=== PATIENT | male | born 1960 | race African-American/Black ===

== ENCOUNTER 2019-08-17 03:33 | Emergency (ER) | payer MEDICAID ==
[~2019-08-17] VITALS: Ht 182.9 cm; Wt 78.0 kg
[2019-08-17 04:08] VITALS: BP 131/98
== END 2019-08-18 06:34 | disposition left against medical advice (07) ==
LOC: ER 03:33
DX: Z53.21 Procedure and treatment not carried out due to patient leaving prior to being seen by health care provider (principal)

== ENCOUNTER 2021-08-25 10:52 | Emergency (ER) | payer MEDICAID, OTHER ==
[~2021-08-25] VITALS: Ht 182.9 cm; Wt 78.0 kg
[2021-08-25 11:57] LABS: BASOPHILS % 0.7 % (0.0-2.0); EOSINOPHILS % 2.1 % (0.0-5.0); HEMATOCRIT. 36.4 % (42.0-52.0); HEMOGLOBIN. 12.5 g/dL (14.0-18.0); LYMPHOCYTES % 24.1 % (20.0-50.0); MEAN CORPUSCULAR HEMOGLOBIN 32.2 pg (28.0-32.0); MEAN CORPUSCULAR VOLUME 93.9 fL (80.0-94.0); MEAN PLATELET VOLUME 8.7 fl (7.4-10.4); NEUTROPHILS % 65.1 % (40.0-76.0); PLATELET 180 x1000/uL (130-400); RED BLOOD CELL COUNT 3.88 mill/uL (4.7-6.1); RED CELL DISTRIBUTION WIDTH 13.1 % (11.6-14.6)
[2021-08-25 12:00] LABS: CHLORIDE 109 mEq/L (98-107)
[2021-08-25] MEDS ORDERED: FUROSEMIDE 40MG/4ML VIAL IV ONE (13:15)
[2021-08-25] MEDS ORDERED: ASPIRIN 81MG TABLET PO ONE (13:15)
[2021-08-25] MEDS ORDERED: METHYLPREDNISOLONE SOD SUCC 125 MG/2 ML VIAL IV ONE (13:15)
[2021-08-25] MEDS ORDERED: CEFTRIAXONE 1 G PREMIX 50 ML IV ONE (13:15)
[2021-08-25 13:57] VITALS: BP 149/101
== END 2021-08-25 14:34 | disposition short-term general hospital (02) ==
LOC: ER 11:03
DX: I11.0 Hypertensive heart disease with heart failure (principal); I50.9 Heart failure, unspecified; E78.00 Pure hypercholesterolemia, unspecified; I10 Essential (primary) hypertension
CPT/HCPCS: 36415; 71045; 80053; 83880; 84484; 85025; 99291

== ENCOUNTER 2021-09-01 05:18 | Inpatient (IN) | payer OTHER ==
[2021-09-01] VITALS (62 sets, daily range): BP systolic 77–151; BP diastolic 50–107
[~2021-09-01] VITALS: Ht 185.4 cm; Wt 69.5 kg
[2021-09-01 05:48] LABS: BASOPHILS % 0.9 % (0.0-2.0); EOSINOPHILS % 1.9 % (0.0-5.0); HEMATOCRIT. 40.6 % (42.0-52.0); HEMOGLOBIN. 13.5 g/dL (14.0-18.0); LYMPHOCYTES % 58.7 % (20.0-50.0); MEAN CORPUSCULAR HEMOGLOBIN 32.3 pg (28.0-32.0); MEAN CORPUSCULAR VOLUME 96.7 fL (80.0-94.0); MEAN PLATELET VOLUME 8.7 fl (7.4-10.4); MONOCYTES % 10.7 % (2.0-8.0); NEUTROPHILS % 27.8 % (40.0-76.0); PLATELET 240 x1000/uL (130-400); RED CELL DISTRIBUTION WIDTH 13.7 % (11.6-14.6)
[2021-09-01 05:56] LABS: CHLORIDE 107 mEq/L (98-107)
[2021-09-01] MEDS ORDERED: FENTANYL 2500MCG/250ML PMX 250 ML IV PRN ×2 (06:00→06:15)
[2021-09-01] MEDS ORDERED: ETOMIDATE 2MG/ML 10ML VIAL IV ONE ×2 (06:00→08:42)
[2021-09-01] MEDS ORDERED: PROPOFOL 10MG/ML 100ML 100 ML IV ONE (06:00)
[2021-09-01] MEDS ORDERED: METHYLPREDNISOLONE SOD SUCC 125 MG/2 ML VIAL IV STA (06:12)
[2021-09-01] MEDS ORDERED: ALBUTEROL (0.083%) 2.5MG/3ML NEB HHN STA (06:12)
[2021-09-01] MEDS ORDERED: IPRATROPIUM BROMIDE (0.02%) 0.5MG/2.5ML NEB HHN STA (06:12)
[2021-09-01] MEDS ORDERED: PIPERACILLIN/TAZOBACTAM 3.375GM/50ML PREMIX IV ONE (06:15)
[2021-09-01] MEDS ORDERED: VANCOMYCIN 1G PREMIX 200 ML IV SCH (06:15)
[2021-09-01] MEDS ORDERED: PIPERACILLIN/TAZ 3.375G PREMIX 50 ML IV NR (06:30)
[2021-09-01] MEDS ORDERED: FUROSEMIDE 40MG/4ML VIAL IVP ONE (07:15)
[2021-09-01] MEDS ORDERED: NOREPINEPHRINE 8 MG in DEXT 5% WATER 242 ML IV PRN (08:30)
[2021-09-01] MEDS ORDERED: SODIUM CHLORIDE 0.9% 10ML VIAL ONE (08:42)
[2021-09-01] MEDS ORDERED: VECURONIUM BROMIDE 10 MG/VIAL IV ONE (08:42)
[2021-09-01] MEDS ORDERED: LIDOCAINE HCL/PF 1% 2ML VIAL ONE (09:34)
[2021-09-01] MEDS ORDERED: MAGNESIUM/ALUMINUM HYDROXIDE/SIMETHICONE 30ML UDC PO PRN (09:45)
[2021-09-01] MEDS ORDERED: IPRATROPIUM/ALBUTEROL 0.5-3(2.5)MG/3ML NEB HHN PRN (09:45)
[2021-09-01] MEDS ORDERED: CLONIDINE 0.1MG TABLET PO PRN (09:45)
[2021-09-01] MEDS ORDERED: ONDANSETRON HCL 4MG/2ML INJ IV PRN (09:45)
[2021-09-01] MEDS ORDERED: DIPHENHYDRAMINE 50MG/ML VIAL IV PRN (09:45)
[2021-09-01] MEDS ORDERED: PROPOFOL 10MG/ML 100ML 100 ML IV PRN (09:45)
[2021-09-01] MEDS ORDERED: MORPHINE SULFATE 2 MG/ML CPJ (NOT FOR IM USE) IV PRN (09:45)
[2021-09-01] MEDS ORDERED: ACETAMINOPHEN 325MG TABLET PO PRN (09:45)
[2021-09-01] MEDS ORDERED: HYDROCODONE/ACETAMINOPHEN 5/325MG TABLET PO PRN (09:45)
[2021-09-01] MEDS ORDERED: DOCUSATE SODIUM 100MG CAPSULE PO PRN (09:45)
[2021-09-01] MEDS ORDERED: GUAIFENESIN 200MG/10ML SUGAR FREE UDC PO PRN (09:45)
[2021-09-01] MEDS ORDERED: HYDRALAZINE 20MG/ML VIAL IV PRN (09:45)
[2021-09-01] MEDS ORDERED: LORAZEPAM 2MG/ML CPJ IV PRN (09:45)
[2021-09-01 09:53] LABS: BG BASE EXCESS -0.6 mmol/L (-2.0-2.0); BG CARBOXYHEMOGLOBIN 0.1 % (0.5-1.5); BG DEOXYHEMOGLOBIN 3.4 % (0.0-5.0); BG HCO3 ACT 27.1 mmol/L (22.0-26.0); BG METHEMOGLOBIN 0.7 % (0.0-1.5); BG OXYGEN SATURATION 96.6 % (92.0-98.5); BG OXYHEMOGLOBIN 95.8 % (94.0-97.0); BG PCO2 57.8 mmHg (35.0-45.0); BG PH 7.289 (7.350-7.450); BG PO2 101.3 mmHg (75.0-100.0); BG SAMPLE SITE RIGHT BRACHIAL; BG TOTAL HEMOGLOBIN 14.2 g/dL (12.0-18.0); BG VENT MODE VENT - AC
[2021-09-01] MEDS ORDERED: POTASSIUM CHLORIDE INJ 40 MEQ in DEXT 5% WATER 500 ML IV ONE (10:15)
[2021-09-01] MEDS ORDERED: NALOXONE HCL 0.4MG/ML VIAL IV PRN (10:30)
[2021-09-01] MEDS ORDERED: ENOXAPARIN 40MG/0.4ML SYR SUBCUT SCH (10:30)
[2021-09-01] MEDS ORDERED: LIDOCAINE HCL/PF 1% 10 MG/ML 5ML VIAL ONE (10:39)
[2021-09-01] MEDS: DEXT 5%/0.45% NACL 1000ML 1,000 ML IV SCH (13:06)
[2021-09-01] MEDS: CEFTRIAXONE 1,000 MG in DEXTROSE 5% WATER 50 ML IV SCH (13:06)
[2021-09-01] MEDS: KCL 20MEQ/100ML X 2 FOR TOTAL KCL 40MEQ/200ML IV SCH ×2 (13:06→15:29)
[2021-09-01 13:10] LABS: BG BASE EXCESS 0.6 mmol/L (-2.0-2.0); BG CARBOXYHEMOGLOBIN 0.3 % (0.5-1.5); BG DEOXYHEMOGLOBIN 2.5 % (0.0-5.0); BG HCO3 ACT 25.3 mmol/L (22.0-26.0); BG METHEMOGLOBIN 0.3 % (0.0-1.5); BG OXYGEN SATURATION 97.5 % (92.0-98.5); BG OXYHEMOGLOBIN 96.9 % (94.0-97.0); BG PCO2 41.1 mmHg (35.0-45.0); BG PH 7.407 (7.350-7.450); BG PO2 96.8 mmHg (75.0-100.0); BG SAMPLE SITE RIGHT BRACHIAL; BG TOTAL HEMOGLOBIN 13.9 g/dL (12.0-18.0); BG VENT MODE VENT - AC
[2021-09-01] MEDS ORDERED: PHENYLEPHRINE 50 MG in DEXT 5% WATER 245 ML IV PRN (14:00)
[2021-09-01] MEDS ORDERED: SPIRONOLACTONE 50MG TABLET PO SCH (14:00)
[2021-09-01] MEDS: SODIUM CHLORIDE 0.9% INJ 3ML FLUSH IVF SCH ×2 (14:12→21:33)
[2021-09-01] MEDS: METHYLPREDNISOLONE SOD SUCC 40 MG/ML VIAL IV SCH ×2 (14:22→21:33)
[2021-09-01] MEDS: FUROSEMIDE 40MG/4ML VIAL IVP SCH (14:22)
[2021-09-01] MEDS ORDERED: IBUP-2028 MT (17:49)
[2021-09-01] MEDS ORDERED: ALBU90AE INH (17:49)
[2021-09-01] MEDS ORDERED: TAMS-11 MT (17:49)
[2021-09-01] MEDS ORDERED: ASPI-1497 MT (17:49)
[2021-09-01] MEDS ORDERED: AMLO10TA80 PO (17:49)
[2021-09-01] MEDS ORDERED: ENOXAPARIN 40MG/0.4ML SYR SUBCUT NR (18:00)
[2021-09-01] MEDS: ENOXAPARIN 80MG/0.8ML SYR SUBCUT SCH (19:02)
[2021-09-01] MEDS: FENTANYL 2500MCG/250ML PMX 250 ML IV PRN (20:43)
[2021-09-01 22:07] LABS: CLARITY URINE CLOUDY (CLEAR); COLOR URINE DARK YELLOW (YELLOW); KETONES URINE TRACE (NEGATIVE); LEUKOCYTE ESTERASE URINE 1+ (NEGATIVE); NITRITE URINE NEGATIVE (NEGATIVE); OCCULT BLOOD URINE 2+ (NEGATIVE); PROTEIN URINE TRACE (NEGATIVE)
[2021-09-01 22:20] LABS: INR 1.1; PROTHROMBIN TIME 11.7 sec (9.6-11.0)
[2021-09-01 22:22] LABS: *AMPHETAMINES SCREEN URINE NEGATIVE (NEGATIVE); *BARBITURATES SCREEN URINE NEGATIVE (NEGATIVE); *BENZODIAZEPINES SCREEN URINE NEGATIVE (NEGATIVE); *COCAINE SCREEN URINE PRESUMTIVE POSITIVE (NEGATIVE); METHADONE URINE SCREEN NEGATIVE (NEGATIVE); OPIATES URINE SCREEN NEGATIVE (NEGATIVE)
[2021-09-01 22:24] LABS: CANNABINOID URINE SCREEN PRESUMTIVE POSITIVE (NEGATIVE); PHENCYCLIDINE URINE SCREEN NEGATIVE (NEGATIVE)
[2021-09-01] MEDS ORDERED: PHENYLEPHRINE 100 MG in DEXT 5% WATER 240 ML IV PRN (23:30)
[2021-09-02] VITALS (81 sets, daily range): BP systolic 69–159; BP diastolic 51–108
[2021-09-02 05:22] LABS: HEMATOCRIT. 38.4 % (42.0-52.0); HEMOGLOBIN. 12.8 g/dL (14.0-18.0); MEAN CORPUSCULAR HEMOGLOBIN 32.2 pg (28.0-32.0); MEAN CORPUSCULAR VOLUME 96.7 fL (80.0-94.0); MEAN PLATELET VOLUME 9.5 fl (7.4-10.4); PLATELET 238 x1000/uL (130-400); RED BLOOD CELL COUNT 3.97 mill/uL (4.7-6.1); RED CELL DISTRIBUTION WIDTH 14.3 % (11.6-14.6)
[2021-09-02 05:33] LABS: CHLORIDE 106 mEq/L (98-107)
[2021-09-02] MEDS: METHYLPREDNISOLONE SOD SUCC 40 MG/ML VIAL IV SCH ×3 (05:52→22:32)
[2021-09-02] MEDS: SODIUM CHLORIDE 0.9% INJ 3ML FLUSH IVF SCH ×3 (05:52→22:32)
[2021-09-02 05:53] LABS: CLARITY URINE CLEAR (CLEAR); COLOR URINE YELLOW (YELLOW); KETONES URINE TRACE (NEGATIVE); LEUKOCYTE ESTERASE URINE TRACE (NEGATIVE); NITRITE URINE NEGATIVE (NEGATIVE); OCCULT BLOOD URINE 2+ (NEGATIVE); PROTEIN URINE TRACE (NEGATIVE); UROBILINOGEN URINE 0.2 E.U./dL (0.2-1.0)
[2021-09-02] MEDS: ENOXAPARIN 80MG/0.8ML SYR SUBCUT SCH ×2 (06:19→17:45)
[2021-09-02 06:58] LABS: *AMPHETAMINES SCREEN URINE NEGATIVE (NEGATIVE)
[2021-09-02 06:59] LABS: *BENZODIAZEPINES SCREEN URINE NEGATIVE (NEGATIVE); *COCAINE SCREEN URINE PRESUMTIVE POSITIVE (NEGATIVE); CANNABINOID URINE SCREEN PRESUMTIVE POSITIVE (NEGATIVE); METHADONE URINE SCREEN NEGATIVE (NEGATIVE); OPIATES URINE SCREEN NEGATIVE (NEGATIVE); PHENCYCLIDINE URINE SCREEN NEGATIVE (NEGATIVE)
[2021-09-02 07:10] LABS: NUCLEATED RED BLOOD CELLS 1 /100 WBC; PLATELET ESTIMATE NORMAL
[2021-09-02] MEDS ORDERED: NITROGLYCERIN OINT 1GM/INCH UDPKT TD PRN (08:45)
[2021-09-02] MEDS ORDERED: CEFTRIAXONE SODIUM 1 G/VIAL IV SCH (09:00)
[2021-09-02] MEDS: FENTANYL 2500MCG/250ML PMX 250 ML IV PRN ×2 (09:04→21:59)
[2021-09-02] MEDS: FUROSEMIDE 40MG/4ML VIAL IVP SCH ×2 (09:24→17:45)
[2021-09-02] MEDS: ASPIRIN 81MG TABLET PO SCH (09:24)
[2021-09-02] MEDS: DEXT 5%/0.45% NACL 1000ML 1,000 ML IV SCH (09:24)
[2021-09-02 11:14] LABS: BG BASE EXCESS -2.6 mmol/L (-2.0-2.0); BG CARBOXYHEMOGLOBIN 0.3 % (0.5-1.5); BG DEOXYHEMOGLOBIN 0.5 % (0.0-5.0); BG HCO3 ACT 23.7 mmol/L (22.0-26.0); BG METHEMOGLOBIN 0.1 % (0.0-1.5); BG OXYGEN SATURATION 99.5 % (92.0-98.5); BG OXYHEMOGLOBIN 99.1 % (94.0-97.0); BG PCO2 46.8 mmHg (35.0-45.0); BG PH 7.323 (7.350-7.450); BG PO2 422.8 mmHg (75.0-100.0); BG SAMPLE SITE RIGHT BRACHIAL; BG TOTAL HEMOGLOBIN 14.4 g/dL (12.0-18.0); BG VENT MODE VENT - AC
[2021-09-02 12:13] LABS: BG BASE EXCESS 0.7 mmol/L (-2.0-2.0); BG CARBOXYHEMOGLOBIN 0.3 % (0.5-1.5); BG DEOXYHEMOGLOBIN 5.3 % (0.0-5.0); BG FRACTION INSPIRED OXYGEN 50; BG HCO3 ACT 27.9 mmol/L (22.0-26.0); BG METHEMOGLOBIN 0.1 % (0.0-1.5); BG OXYGEN SATURATION 94.7 % (92.0-98.5); BG OXYHEMOGLOBIN 94.3 % (94.0-97.0); BG PH 7.316 (7.350-7.450); BG PO2 81.3 mmHg (75.0-100.0); BG SAMPLE SITE RIGHT BRACHIAL; BG TOTAL HEMOGLOBIN 13.4 g/dL (12.0-18.0); BG VENT MODE VENT - AC
[2021-09-02] MEDS: CEFTRIAXONE 1,000 MG in DEXTROSE 5% WATER 50 ML IV SCH (13:36)
[2021-09-02] MEDS: CLOPIDOGREL 75MG TABLET NG SCH (13:37)
[2021-09-02] MEDS: LOSARTAN POTASSIUM 50 MG TABLET NG SCH (13:37)
[2021-09-02] MEDS: SPIRONOLACTONE 25MG TABLET NG SCH (13:38)
[2021-09-02] MEDS ORDERED: SIMV-43 PO (14:32)
[2021-09-02] MEDS ORDERED: HYDR25TA PO (14:32)
[2021-09-02] MEDS ORDERED: PROPOFOL 10MG/ML 100ML 100 ML IV PRN (16:00)
[2021-09-02] MEDS: ATORVASTATIN CALCIUM 40MG TABLET NG SCH (21:27)
[2021-09-03] VITALS (42 sets, daily range): BP systolic 92–135; BP diastolic 56–104
[2021-09-03 06:01] LABS: HEMATOCRIT. 35.1 % (42.0-52.0); MEAN CORPUSCULAR HEMOGLOBIN 32.5 pg (28.0-32.0); MEAN CORPUSCULAR VOLUME 95.5 fL (80.0-94.0); MEAN PLATELET VOLUME 9.2 fl (7.4-10.4); PLATELET 219 x1000/uL (130-400); RED BLOOD CELL COUNT 3.67 mill/uL (4.7-6.1)
[2021-09-03] MEDS: FUROSEMIDE 40MG/4ML VIAL IVP SCH ×2 (06:11→17:55)
[2021-09-03] MEDS: METHYLPREDNISOLONE SOD SUCC 40 MG/ML VIAL IV SCH ×3 (06:11→21:21)
[2021-09-03] MEDS: ENOXAPARIN 80MG/0.8ML SYR SUBCUT SCH ×2 (06:12→17:53)
[2021-09-03] MEDS: SODIUM CHLORIDE 0.9% INJ 3ML FLUSH IVF SCH ×3 (06:12→21:21)
[2021-09-03 06:27] LABS: CHLORIDE 105 mEq/L (98-107)
[2021-09-03] MEDS: LOSARTAN POTASSIUM 50 MG TABLET NG SCH (09:00)
[2021-09-03] MEDS: CLOPIDOGREL 75MG TABLET NG SCH (09:24)
[2021-09-03] MEDS: ASPIRIN 81MG TABLET PO SCH (09:24)
[2021-09-03] MEDS: SPIRONOLACTONE 25MG TABLET NG SCH (09:25)
[2021-09-03 09:58] LABS: BG BASE EXCESS 1.1 mmol/L (-2.0-2.0); BG CARBOXYHEMOGLOBIN 0.3 % (0.5-1.5); BG FRACTION INSPIRED OXYGEN 50; BG HCO3 ACT 25.4 mmol/L (22.0-26.0); BG METHEMOGLOBIN 0.3 % (0.0-1.5); BG OXYHEMOGLOBIN 98.4 % (94.0-97.0); BG PCO2 38.9 mmHg (35.0-45.0); BG PH 7.432 (7.350-7.450); BG PO2 174.9 mmHg (75.0-100.0); BG SAMPLE SITE RIGHT BRACHIAL; BG TOTAL HEMOGLOBIN 12.7 g/dL (12.0-18.0); BG VENT MODE VENT - AC
[2021-09-03 09:59] LABS: PLATELET ESTIMATE NORMAL
[2021-09-03] MEDS: DEXT 5%/0.45% NACL 1000ML 1,000 ML IV SCH (10:15)
[2021-09-03] MEDS: CEFTRIAXONE 1,000 MG in DEXTROSE 5% WATER 50 ML IV SCH (13:53)
[2021-09-03] MEDS: FOLIC ACID 1MG TABLET NG SCH (14:56)
[2021-09-03] MEDS: THIAMINE HCL 100MG TABLET NG SCH (14:56)
[2021-09-03] MEDS: MULTIVITAMINS,THER W-MINERALS TABLET NG SCH (14:56)
[2021-09-03] MEDS ORDERED: PROPOFOL 10MG/ML 100ML 100 ML IV PRN (16:15)
[2021-09-03] MEDS: PANTOPRAZOLE SODIUM 40 MG/VIAL IV SCH (17:10)
[2021-09-03] MEDS ORDERED: WARFARIN SODIUM 5MG TABLET PO SCH (18:00)
[2021-09-03] MEDS: IPRATROPIUM/ALBUTEROL 0.5-3(2.5)MG/3ML NEB HHN SCH (20:09)
[2021-09-03] MEDS: ATORVASTATIN CALCIUM 40MG TABLET NG SCH (21:21)
[2021-09-03 22:04] LABS: *BARBITURATES SCREEN URINE NEGATIVE (NEGATIVE)
[2021-09-04] VITALS (23 sets, daily range): BP systolic 94–139; BP diastolic 66–109
[2021-09-04] MEDS: IPRATROPIUM/ALBUTEROL 0.5-3(2.5)MG/3ML NEB HHN SCH ×7 (00:09→23:40)
[2021-09-04] MEDS: ACETYLCYSTEINE 100MG/ML 10% VIAL 4ML INH SCH ×4 (00:10→23:40)
[2021-09-04 05:26] LABS: HEMATOCRIT. 38.2 % (42.0-52.0); HEMOGLOBIN. 12.9 g/dL (14.0-18.0); MEAN CORPUSCULAR HEMOGLOBIN 32.1 pg (28.0-32.0); MEAN PLATELET VOLUME 9.2 fl (7.4-10.4); PLATELET 243 x1000/uL (130-400); RED BLOOD CELL COUNT 4.02 mill/uL (4.7-6.1); RED CELL DISTRIBUTION WIDTH 13.6 % (11.6-14.6)
[2021-09-04 05:37] LABS: PROTHROMBIN TIME 10.8 sec (9.6-11.0)
[2021-09-04 05:38] LABS: CHLORIDE 107 mEq/L (98-107)
[2021-09-04] MEDS: SODIUM CHLORIDE 0.9% INJ 3ML FLUSH IVF SCH ×3 (06:23→22:12)
[2021-09-04] MEDS: FUROSEMIDE 40MG/4ML VIAL IVP SCH ×2 (06:31→17:14)
[2021-09-04] MEDS: METHYLPREDNISOLONE SOD SUCC 40 MG/ML VIAL IV SCH ×3 (06:31→22:12)
[2021-09-04 07:59] LABS: BG BASE EXCESS 6.6 mmol/L (-2.0-2.0); BG CARBOXYHEMOGLOBIN 0.5 % (0.5-1.5); BG DEOXYHEMOGLOBIN 2.4 % (0.0-5.0); BG HCO3 ACT 31.1 mmol/L (22.0-26.0); BG METHEMOGLOBIN 0.2 % (0.0-1.5); BG OXYGEN SATURATION 97.6 % (92.0-98.5); BG OXYHEMOGLOBIN 96.9 % (94.0-97.0); BG PH 7.467 (7.350-7.450); BG PO2 97.5 mmHg (75.0-100.0); BG SAMPLE SITE RIGHT BRACHIAL; BG TOTAL HEMOGLOBIN 13.5 g/dL (12.0-18.0); BG VENT MODE VENT - AC
[2021-09-04] MEDS: MULTIVITAMINS,THER W-MINERALS TABLET NG SCH (08:27)
[2021-09-04] MEDS: FOLIC ACID 1MG TABLET NG SCH (08:27)
[2021-09-04] MEDS: PANTOPRAZOLE SODIUM 40 MG/VIAL IV SCH (08:27)
[2021-09-04] MEDS: LOSARTAN POTASSIUM 50 MG TABLET NG SCH (08:27)
[2021-09-04] MEDS: METOLAZONE 5MG TABLET PO SCH (08:27)
[2021-09-04] MEDS: SPIRONOLACTONE 25MG TABLET NG SCH (08:28)
[2021-09-04] MEDS: ASPIRIN 81MG TABLET PO SCH (08:28)
[2021-09-04] MEDS: CLOPIDOGREL 75MG TABLET NG SCH (08:28)
[2021-09-04] MEDS: THIAMINE HCL 100MG TABLET NG SCH (08:28)
[2021-09-04 08:58] LABS: PLATELET ESTIMATE NORMAL
[2021-09-04 10:48] LABS: BG BASE EXCESS 6.2 mmol/L (-2.0-2.0); BG CARBOXYHEMOGLOBIN 0.1 % (0.5-1.5); BG DEOXYHEMOGLOBIN 2.3 % (0.0-5.0); BG METHEMOGLOBIN 0.1 % (0.0-1.5); BG OXYGEN SATURATION 97.7 % (92.0-98.5); BG OXYHEMOGLOBIN 97.5 % (94.0-97.0); BG PCO2 40.5 mmHg (35.0-45.0); BG PH 7.488 (7.350-7.450); BG PO2 101.7 mmHg (75.0-100.0); BG SAMPLE SITE RIGHT BRACHIAL; BG TOTAL HEMOGLOBIN 13.5 g/dL (12.0-18.0); BG VENT MODE VENT - CPAP
[2021-09-04] MEDS: CEFTRIAXONE 1,000 MG in DEXTROSE 5% WATER 50 ML IV SCH (13:04)
[2021-09-04] MEDS ORDERED: WARFARIN SODIUM 3MG TABLET PO SCH (18:00)
[2021-09-04] MEDS: ATORVASTATIN CALCIUM 40MG TABLET NG SCH (20:46)
[2021-09-05] VITALS (37 sets, daily range): BP systolic 108–134; BP diastolic 25–100
[2021-09-05] MEDS: IPRATROPIUM/ALBUTEROL 0.5-3(2.5)MG/3ML NEB HHN SCH ×5 (03:47→20:52)
[2021-09-05 05:29] LABS: HEMATOCRIT. 37.6 % (42.0-52.0); HEMOGLOBIN. 12.9 g/dL (14.0-18.0); MEAN CORPUSCULAR HEMOGLOBIN 32.2 pg (28.0-32.0); MEAN CORPUSCULAR VOLUME 93.9 fL (80.0-94.0); MEAN PLATELET VOLUME 9.3 fl (7.4-10.4); PLATELET 239 x1000/uL (130-400); RED CELL DISTRIBUTION WIDTH 13.4 % (11.6-14.6)
[2021-09-05 05:32] LABS: INR 1.1; PROTHROMBIN TIME 11.4 sec (9.6-11.0)
[2021-09-05 06:09] LABS: CHLORIDE 98 mEq/L (98-107)
[2021-09-05] MEDS: SODIUM CHLORIDE 0.9% INJ 3ML FLUSH IVF SCH ×3 (06:39→23:00)
[2021-09-05] MEDS: FUROSEMIDE 40MG/4ML VIAL IVP SCH ×2 (06:39→17:29)
[2021-09-05] MEDS: METHYLPREDNISOLONE SOD SUCC 40 MG/ML VIAL IV SCH ×3 (06:39→23:03)
[2021-09-05] MEDS: PANTOPRAZOLE SODIUM 40 MG/VIAL IV SCH (08:30)
[2021-09-05] MEDS: ASPIRIN 81MG TABLET PO SCH (08:30)
[2021-09-05] MEDS: FOLIC ACID 1MG TABLET NG SCH (08:31)
[2021-09-05] MEDS: LOSARTAN POTASSIUM 50 MG TABLET NG SCH (08:31)
[2021-09-05] MEDS: METOLAZONE 5MG TABLET PO SCH (08:31)
[2021-09-05] MEDS: CLOPIDOGREL 75MG TABLET NG SCH (08:31)
[2021-09-05] MEDS: SPIRONOLACTONE 25MG TABLET NG SCH (08:31)
[2021-09-05] MEDS: MULTIVITAMINS,THER W-MINERALS TABLET NG SCH (08:31)
[2021-09-05] MEDS: THIAMINE HCL 100MG TABLET NG SCH (08:32)
[2021-09-05] MEDS: ACETYLCYSTEINE 100MG/ML 10% VIAL 4ML INH SCH ×2 (08:45→16:17)
[2021-09-05 08:53] LABS: BG CARBOXYHEMOGLOBIN 0.6 % (0.5-1.5); BG DEOXYHEMOGLOBIN 2.2 % (0.0-5.0); BG FRACTION INSPIRED OXYGEN 28; BG HCO3 ACT 35.1 mmol/L (22.0-26.0); BG METHEMOGLOBIN 0.2 % (0.0-1.5); BG OXYGEN SATURATION 97.8 % (92.0-98.5); BG PCO2 48.3 mmHg (35.0-45.0); BG PH 7.479 (7.350-7.450); BG PO2 101.8 mmHg (75.0-100.0); BG SAMPLE SITE RIGHT RADIAL; BG TOTAL HEMOGLOBIN 14.4 g/dL (12.0-18.0); BG VENT MODE NASAL CANNULA
[2021-09-05] MEDS ORDERED: POTASSIUM CHLORIDE 20MEQ TABLET SR PO NR (09:30)
[2021-09-05 10:16] LABS: PLATELET ESTIMATE NORMAL
[2021-09-05] MEDS ORDERED: ENOXAPARIN 80MG/0.8ML SYR SUBCUT SCH (13:08)
[2021-09-05] MEDS: CEFTRIAXONE 1,000 MG in DEXTROSE 5% WATER 50 ML IV SCH (13:42)
[2021-09-05] MEDS ORDERED: WARFARIN SODIUM 3MG TABLET PO NR (18:00)
[2021-09-05] MEDS: ATORVASTATIN CALCIUM 40MG TABLET NG SCH (20:59)
[2021-09-06] VITALS: BP 126/88
[2021-09-06] MEDS: IPRATROPIUM/ALBUTEROL 0.5-3(2.5)MG/3ML NEB HHN SCH ×6 (01:33→21:04)
[2021-09-06] MEDS: ACETYLCYSTEINE 100MG/ML 10% VIAL 4ML INH SCH ×3 (01:33→16:08)
[2021-09-06 04:00] VITALS: BP 128/95
[2021-09-06] MEDS: FUROSEMIDE 40MG/4ML VIAL IVP SCH ×2 (05:45→18:19)
[2021-09-06] MEDS: METHYLPREDNISOLONE SOD SUCC 40 MG/ML VIAL IV SCH ×3 (05:45→21:25)
[2021-09-06] MEDS: SODIUM CHLORIDE 0.9% INJ 3ML FLUSH IVF SCH ×3 (05:45→21:25)
[2021-09-06 07:17] LABS: INR 1.2; PROTHROMBIN TIME 12.7 sec (9.6-11.0)
[2021-09-06 07:18] LABS: BASOPHILS % 0.1 % (0.0-2.0); HEMATOCRIT. 39.9 % (42.0-52.0); HEMOGLOBIN. 13.6 g/dL (14.0-18.0); LYMPHOCYTES % 9.3 % (20.0-50.0); MEAN CORPUSCULAR HEMOGLOBIN 32.3 pg (28.0-32.0); MEAN CORPUSCULAR VOLUME 94.5 fL (80.0-94.0); MEAN PLATELET VOLUME 9.1 fl (7.4-10.4); MONOCYTES % 7.7 % (2.0-8.0); NEUTROPHILS % 82.9 % (40.0-76.0); PLATELET 271 x1000/uL (130-400); RED BLOOD CELL COUNT 4.23 mill/uL (4.7-6.1); RED CELL DISTRIBUTION WIDTH 13.1 % (11.6-14.6)
[2021-09-06 07:26] LABS: CHLORIDE 93 mEq/L (98-107)
[2021-09-06 08:00] VITALS: BP 119/91
[2021-09-06] MEDS: MULTIVITAMINS,THER W-MINERALS TABLET NG SCH (09:58)
[2021-09-06] MEDS: CLOPIDOGREL 75MG TABLET NG SCH (09:58)
[2021-09-06] MEDS: THIAMINE HCL 100MG TABLET NG SCH (09:58)
[2021-09-06] MEDS: PANTOPRAZOLE SODIUM 40 MG/VIAL IV SCH (09:58)
[2021-09-06] MEDS: LOSARTAN POTASSIUM 50 MG TABLET NG SCH (09:58)
[2021-09-06] MEDS: METOLAZONE 5MG TABLET PO SCH (09:58)
[2021-09-06] MEDS: FOLIC ACID 1MG TABLET NG SCH (09:58)
[2021-09-06] MEDS: ASPIRIN 81MG TABLET PO SCH (09:59)
[2021-09-06] MEDS: SPIRONOLACTONE 25MG TABLET NG SCH (09:59)
[2021-09-06 12:00] VITALS: BP 118/89
[2021-09-06] MEDS: CEFTRIAXONE 1,000 MG in DEXTROSE 5% WATER 50 ML IV SCH (13:33)
[2021-09-06 16:00] VITALS: BP 121/96
[2021-09-06] MEDS ORDERED: ATOR10TA PO (17:49)
[2021-09-06] MEDS ORDERED: WARFARIN SODIUM 7.5MG TABLET PO SCH (18:00)
[2021-09-06 20:00] VITALS: BP 129/81
[2021-09-06] MEDS: ATORVASTATIN CALCIUM 40MG TABLET NG SCH (21:25)
[2021-09-07] VITALS: BP 113/83
[2021-09-07] MEDS: IPRATROPIUM/ALBUTEROL 0.5-3(2.5)MG/3ML NEB HHN SCH ×5 (01:14→20:10)
[2021-09-07] MEDS: ACETYLCYSTEINE 100MG/ML 10% VIAL 4ML INH SCH ×4 (01:14→22:33)
[2021-09-07 04:00] VITALS: BP 129/95
[2021-09-07] MEDS: SODIUM CHLORIDE 0.9% INJ 3ML FLUSH IVF SCH ×3 (06:20→21:25)
[2021-09-07] MEDS: METHYLPREDNISOLONE SOD SUCC 40 MG/ML VIAL IV SCH ×3 (06:20→21:21)
[2021-09-07] MEDS: FUROSEMIDE 40MG/4ML VIAL IVP SCH ×2 (06:21→19:15)
[2021-09-07 07:13] LABS: BASOPHILS % 0.1 % (0.0-2.0); HEMATOCRIT. 41.5 % (42.0-52.0); HEMOGLOBIN. 14.3 g/dL (14.0-18.0); LYMPHOCYTES % 8.4 % (20.0-50.0); MEAN CORPUSCULAR HEMOGLOBIN 32.1 pg (28.0-32.0); MEAN CORPUSCULAR VOLUME 93.7 fL (80.0-94.0); MEAN PLATELET VOLUME 9.2 fl (7.4-10.4); MONOCYTES % 7.2 % (2.0-8.0); NEUTROPHILS % 84.3 % (40.0-76.0); PLATELET 283 x1000/uL (130-400); RED BLOOD CELL COUNT 4.44 mill/uL (4.7-6.1); RED CELL DISTRIBUTION WIDTH 13.2 % (11.6-14.6)
[2021-09-07 07:19] LABS: CHLORIDE 92 mEq/L (98-107)
[2021-09-07 07:32] LABS: INR 1.3; PROTHROMBIN TIME 13.9 sec (9.6-11.0)
[2021-09-07 08:35] VITALS: BP 121/86
[2021-09-07] MEDS: CLOPIDOGREL 75MG TABLET NG SCH (09:53)
[2021-09-07] MEDS: MULTIVITAMINS,THER W-MINERALS TABLET NG SCH (09:53)
[2021-09-07] MEDS: FAMOTIDINE 20MG TABLET PO SCH (09:53)
[2021-09-07] MEDS: SPIRONOLACTONE 25MG TABLET NG SCH (09:54)
[2021-09-07] MEDS: FOLIC ACID 1MG TABLET NG SCH (09:54)
[2021-09-07] MEDS: LOSARTAN POTASSIUM 50 MG TABLET NG SCH (09:54)
[2021-09-07] MEDS: THIAMINE HCL 100MG TABLET NG SCH (09:54)
[2021-09-07] MEDS: ASPIRIN 81MG TABLET PO SCH (09:54)
[2021-09-07 12:00] VITALS: BP 119/81
[2021-09-07] MEDS: CEFTRIAXONE 1,000 MG in DEXTROSE 5% WATER 50 ML IV SCH (14:31)
[2021-09-07] MEDS: TAMSULOSIN HCL 0.4MG SR CAPSULE PO SCH (14:32)
[2021-09-07 16:00] VITALS: BP 117/78
[2021-09-07] MEDS ORDERED: WARFARIN SODIUM 4MG TABLET PO SCH (18:00)
[2021-09-07 20:00] VITALS: BP 138/54
[2021-09-07] MEDS: ATORVASTATIN CALCIUM 40MG TABLET NG SCH (21:21)
[2021-09-08] VITALS: BP 128/83
[2021-09-08] MEDS: IPRATROPIUM/ALBUTEROL 0.5-3(2.5)MG/3ML NEB HHN SCH ×5 (00:30→12:22)
[2021-09-08 04:00] VITALS: BP 107/89
[2021-09-08 04:23] VITALS: BP 107/89
[2021-09-08] MEDS: METHYLPREDNISOLONE SOD SUCC 40 MG/ML VIAL IV SCH ×2 (05:58→13:13)
[2021-09-08] MEDS: FUROSEMIDE 40MG/4ML VIAL IVP SCH (05:58)
[2021-09-08] MEDS: SODIUM CHLORIDE 0.9% INJ 3ML FLUSH IVF SCH ×2 (05:59→13:13)
[2021-09-08] MEDS: ACETYLCYSTEINE 100MG/ML 10% VIAL 4ML INH SCH ×2 (06:00→08:31)
[2021-09-08 06:13] LABS: INR 1.6; PROTHROMBIN TIME 16.2 sec (9.6-11.0)
[2021-09-08 06:16] LABS: CHLORIDE 89 mEq/L (98-107)
[2021-09-08 06:55] LABS: HEMATOCRIT. 42.3 % (42.0-52.0); HEMOGLOBIN. 14.7 g/dL (14.0-18.0); MEAN CORPUSCULAR HEMOGLOBIN 32.4 pg (28.0-32.0); MEAN CORPUSCULAR VOLUME 93.3 fL (80.0-94.0); PLATELET 327 x1000/uL (130-400); RED BLOOD CELL COUNT 4.53 mill/uL (4.7-6.1); RED CELL DISTRIBUTION WIDTH 13.2 % (11.6-14.6)
[2021-09-08 08:00] VITALS: BP 138/91
[2021-09-08] MEDS: CLOPIDOGREL 75MG TABLET NG SCH (08:19)
[2021-09-08] MEDS: THIAMINE HCL 100MG TABLET NG SCH (08:19)
[2021-09-08] MEDS: TAMSULOSIN HCL 0.4MG SR CAPSULE PO SCH (08:19)
[2021-09-08] MEDS: SPIRONOLACTONE 25MG TABLET NG SCH (08:19)
[2021-09-08] MEDS: FAMOTIDINE 20MG TABLET PO SCH (08:19)
[2021-09-08] MEDS: MULTIVITAMINS,THER W-MINERALS TABLET NG SCH (08:19)
[2021-09-08] MEDS: FOLIC ACID 1MG TABLET NG SCH (08:19)
[2021-09-08] MEDS: LOSARTAN POTASSIUM 50 MG TABLET NG SCH (08:20)
[2021-09-08 12:00] VITALS: BP 123/81
[2021-09-08 13:16] VITALS: BP 123/81
[2021-09-08 16:21] LABS: PLATELET ESTIMATE NORMAL
[2021-09-08] MEDS ORDERED: WARFARIN SODIUM 3MG TABLET PO NR (18:00)
[2021-09-08] MEDS ORDERED: WARFARIN SODIUM 4MG TABLET PO NR (18:00)
== END 2021-09-08 13:45 | disposition home or self-care (01) | DRG 133 ==
LOC: ER 05:18 → MICUNO 07:11 → ENRESERV 08:35 → 5WST 09-05 23:28
PROVIDERS: ADMIT Internal Medicine; ATTEND Internal Medicine
PROC: 5A1945Z Respiratory Ventilation, 24-96 Consecutive Hours (ICD-10-PCS; principal; 2021-09-01)
PROC: 02HV33Z Insertion of Infusion Device into Superior Vena Cava, Percutaneous Approach (ICD-10-PCS; 2021-09-01)
PROC: B548ZZA Ultrasonography of Superior Vena Cava, Guidance (ICD-10-PCS; 2021-09-01)
PROC: 0BH17EZ Insertion of Endotracheal Airway into Trachea, Via Natural or Artificial Opening (ICD-10-PCS; 2021-09-01)
PROC: 4A10X4Z Monitoring of Central Nervous Electrical Activity, External Approach (ICD-10-PCS; 2021-09-03)
DX: J96.21 Acute and chronic respiratory failure with hypoxia (principal); I21.09 ST elevation (STEMI) myocardial infarction involving other coronary artery of anterior wall; G93.40 Encephalopathy, unspecified; I50.23 Acute on chronic systolic (congestive) heart failure; E87.2 Acidosis; J18.9 Pneumonia, unspecified organism; I27.21 Secondary pulmonary arterial hypertension; I11.0 Hypertensive heart disease with heart failure; J44.0 Chronic obstructive pulmonary disease with (acute) lower respiratory infection; I42.0 Dilated cardiomyopathy; J44.1 Chronic obstructive pulmonary disease with (acute) exacerbation; I51.3 Intracardiac thrombosis, not elsewhere classified; E87.6 Hypokalemia; I25.10 Atherosclerotic heart disease of native coronary artery without angina pectoris; F17.210 Nicotine dependence, cigarettes, uncomplicated; F10.10 Alcohol abuse, uncomplicated; Y90.9 Presence of alcohol in blood, level not specified; Z20.822 Contact with and (suspected) exposure to COVID-19; F14.10 Cocaine abuse, uncomplicated; R00.0 Tachycardia, unspecified; F12.10 Cannabis abuse, uncomplicated; D32.9 Benign neoplasm of meninges, unspecified; R31.9 Hematuria, unspecified; I34.0 Nonrheumatic mitral (valve) insufficiency; N40.0 Benign prostatic hyperplasia without lower urinary tract symptoms; Z86.73 Personal history of transient ischemic attack (TIA), and cerebral infarction without residual deficits; Z87.11 Personal history of peptic ulcer disease; I25.2 Old myocardial infarction
CPT/HCPCS: 36415; 36600; 71045; 76937; 80048; 80053; 80305; 81003; 82375; 82805; 83605; 83735; 83880; 84145; 84443; 84478; 84484; 85025; 87070; 87426; 93005; 93306; 94002; 94003; 94640; 95816; 99291; C1725; C1769; C9113; J0696; J1200; J1650; J1940; J2060; J2270; J2370; J2543; J2704; J2920; J3010; J3370; J3480; J3490; J7060; J7608; A4315

== ENCOUNTER 2021-10-12 00:34 | Emergency (ER) | payer OTHER ==
[~2021-10-12] VITALS: Ht 190.5 cm; Wt 91.0 kg
[~2021-10-12 00:34] MED LIST: ALBU90AE INH; AMLO10TA80 PO; ASPI-1497 MT; ATOR10TA PO; HYDR25TA PO; TAMS-11 MT
[2021-10-12 01:05] VITALS: BP 109/69
[2021-10-12] MEDS ORDERED: ASPIRIN 81MG TABLET PO ONE (01:15)
== END 2021-10-12 01:28 | disposition left against medical advice (07) ==
LOC: ER 00:34
DX: I95.9 Hypotension, unspecified (principal); F12.10 Cannabis abuse, uncomplicated; Z86.73 Personal history of transient ischemic attack (TIA), and cerebral infarction without residual deficits
CPT/HCPCS: 93005; 99283

== ENCOUNTER 2022-06-04 02:03 | Inpatient (IN) | payer OTHER ==
[~2022-06-04] VITALS: Ht 175.3 cm; Wt 70.8 kg
[2022-06-04] MEDS ORDERED: NITROGLYCERIN 0.4MG TABLET SL SL ONE (02:10)
[2022-06-04] MEDS ORDERED: NITROGLYCERIN 50MG PREMIX 250 ML IV ONE ×2 (02:15→02:30)
[2022-06-04] MEDS ORDERED: FUROSEMIDE 100MG/10ML VIAL IVP ONE (03:15)
[2022-06-04 03:23] LABS: BG BASE EXCESS -5.9 mmol/L (-2.0-2.0); BG CARBOXYHEMOGLOBIN 2.8 % (0.5-1.5); BG DEOXYHEMOGLOBIN 2.9 % (0.0-5.0); BG FRACTION INSPIRED OXYGEN 80; BG HCO3 ACT 21.6 mmol/L (22.0-26.0); BG METHEMOGLOBIN 0.2 % (0.0-1.5); BG OXYHEMOGLOBIN 94.1 % (94.0-97.0); BG PCO2 50.2 mmHg (35.0-45.0); BG PH 7.252 (7.350-7.450); BG PO2 101.6 mmHg (75.0-100.0); BG SAMPLE SITE LEFT BRACHIAL; BG TOTAL HEMOGLOBIN 15.4 g/dL (12.0-18.0); BG VENT MODE MASK - BIPAP
[2022-06-04 03:28] LABS: EOSINOPHILS % 2.2 % (0.0-5.0); HEMATOCRIT. 46.6 % (42.0-52.0); HEMOGLOBIN. 14.9 g/dL (14.0-18.0); LYMPHOCYTES % 62.2 % (20.0-50.0); MEAN CORPUSCULAR HEMOGLOBIN 31.7 pg (28.0-32.0); MEAN PLATELET VOLUME 9.4 fl (7.4-10.4); MONOCYTES % 4.9 % (2.0-8.0); NEUTROPHILS % 29.7 % (40.0-76.0); PLATELET 211 x1000/uL (130-400); RED CELL DISTRIBUTION WIDTH 13.3 % (11.6-14.6)
[2022-06-04 03:43] LABS: PROTHROMBIN TIME 10.9 sec (9.6-11.0)
[2022-06-04 04:08] LABS: CHLORIDE 107 mEq/L (98-107)
[2022-06-04] MEDS ORDERED: ASPIRIN 325MG EC TABLET PO NR (05:30)
[2022-06-04] MEDS ORDERED: IPRATROPIUM/ALBUTEROL 0.5-3(2.5)MG/3ML NEB NEB PRN (09:45)
[2022-06-04] MEDS ORDERED: ACETAMINOPHEN 325MG TABLET PO PRN ×2 (09:45)
[2022-06-04] MEDS ORDERED: ONDANSETRON HCL 4MG/2ML INJ IV PRN (09:45)
[2022-06-04] MEDS ORDERED: MAGNESIUM/ALUMINUM HYDROXIDE/SIMETHICONE 30ML UDC PO PRN (09:45)
[2022-06-04] MEDS ORDERED: DOCUSATE SODIUM 100MG CAPSULE PO PRN (09:45)
[2022-06-04] MEDS ORDERED: CLONIDINE 0.1MG TABLET PO PRN (09:45)
[2022-06-04] MEDS ORDERED: GUAIFENESIN 200MG/10ML SUGAR FREE UDC PO PRN (09:45)
[2022-06-04] MEDS ORDERED: DIPHENHYDRAMINE 50MG/ML VIAL IV PRN (09:45)
[2022-06-04] MEDS: AMLODIPINE 10MG TABLET PO SCH (10:03)
[2022-06-04 10:09] LABS: BG BASE EXCESS 1.2 mmol/L (-2.0-2.0); BG CARBOXYHEMOGLOBIN 0.9 % (0.5-1.5); BG DEOXYHEMOGLOBIN 0.3 % (0.0-5.0); BG FRACTION INSPIRED OXYGEN 80; BG HCO3 ACT 26.3 mmol/L (22.0-26.0); BG METHEMOGLOBIN 0.2 % (0.0-1.5); BG OXYGEN SATURATION 99.7 % (92.0-98.5); BG OXYHEMOGLOBIN 98.6 % (94.0-97.0); BG PCO2 43.5 mmHg (35.0-45.0); BG PO2 252.7 mmHg (75.0-100.0); BG SAMPLE SITE RIGHT RADIAL; BG TOTAL HEMOGLOBIN 15.4 g/dL (12.0-18.0); BG TOTAL RESPIRATORY RATE 19 b/min; BG VENT MODE MASK - CPAP
[2022-06-04] MEDS ORDERED: PIPERACILLIN/TAZ 3.375G PREMIX 50 ML IV NR (10:30)
[2022-06-04 12:42] LABS: T4 FREE 1.06 ng/dL (0.76-1.46)
[2022-06-04 13:32] VITALS: BP 137/69
[2022-06-04] MEDS: ENOXAPARIN 40MG/0.4ML SYR SUBCUT SCH (14:15)
[2022-06-04] MEDS: TAMSULOSIN HCL 0.4MG SR CAPSULE PO SCH (14:16)
[2022-06-04] MEDS: METHYLPREDNISOLONE SOD SUCC 40 MG/ML VIAL IV SCH ×2 (14:17→21:55)
[2022-06-04] MEDS: HYDROCHLOROTHIAZIDE 25MG TABLET PO SCH (14:26)
[2022-06-04 14:59] VITALS: BP 153/110
[2022-06-04] MEDS ORDERED: HYDRALAZINE 20MG/ML VIAL IV PRN (15:15)
[2022-06-04 17:09] LABS: BG BASE EXCESS 2.5 mmol/L (-2.0-2.0); BG CARBOXYHEMOGLOBIN 0.9 % (0.5-1.5); BG DEOXYHEMOGLOBIN 8.2 % (0.0-5.0); BG FRACTION INSPIRED OXYGEN 21; BG METHEMOGLOBIN 0.2 % (0.0-1.5); BG OXYGEN SATURATION 91.7 % (92.0-98.5); BG OXYHEMOGLOBIN 90.7 % (94.0-97.0); BG PCO2 36.9 mmHg (35.0-45.0); BG PH 7.466 (7.350-7.450); BG PO2 57.1 mmHg (75.0-100.0); BG SAMPLE SITE RIGHT RADIAL; BG TOTAL HEMOGLOBIN 16.1 g/dL (12.0-18.0); BG VENT MODE ROOM AIR
[2022-06-04] MEDS ORDERED: DEXTROSE 50% WATER 50ML SYRINGE IV PRN (17:15)
[2022-06-04] MEDS: FUROSEMIDE 40MG/4ML VIAL IV SCH (17:39)
[2022-06-04] MEDS: AZITHROMYCIN 500 MG in DEXT 5% WATER 250 ML IV SCH (17:39)
[2022-06-04] MEDS: CEFTRIAXONE 1,000 MG in DEXTROSE 5% WATER 50 ML IV SCH (17:40)
[2022-06-04] MEDS: INSULIN LISPRO 100 UNITS/ML SUBCUT SCH ×2 (18:00→21:00)
[2022-06-04] MEDS: BLOOD SUGAR DIAGNOSTIC STRIP TEST SCH ×2 (18:08→21:56)
[2022-06-04 19:37] VITALS: BP 128/97
[2022-06-04] MEDS: FAMOTIDINE 20MG TABLET PO SCH (21:55)
[2022-06-04 22:00] VITALS: BP 114/83
[2022-06-04] MEDS ORDERED: PIPERACILLIN/TAZOBACTAM 3.375 G in DEXTROSE 5% WATER 50 ML IV SCH (22:00)
[2022-06-05] VITALS (17 sets, daily range): BP systolic 55–134; BP diastolic 39–99
[2022-06-05] MEDS: METHYLPREDNISOLONE SOD SUCC 40 MG/ML VIAL IV SCH ×3 (04:53→19:44)
[2022-06-05] MEDS: FUROSEMIDE 40MG/4ML VIAL IV SCH ×2 (06:26→17:27)
[2022-06-05 07:15] LABS: BASOPHILS % 0.3 % (0.0-2.0); HEMATOCRIT. 48.3 % (42.0-52.0); HEMOGLOBIN. 16.5 g/dL (14.0-18.0); LYMPHOCYTES % 13.1 % (20.0-50.0); MEAN CORPUSCULAR HEMOGLOBIN 32.3 pg (28.0-32.0); MEAN CORPUSCULAR VOLUME 94.9 fL (80.0-94.0); MEAN PLATELET VOLUME 9.2 fl (7.4-10.4); NEUTROPHILS % 84.6 % (40.0-76.0); PLATELET 224 x1000/uL (130-400); RED CELL DISTRIBUTION WIDTH 12.8 % (11.6-14.6)
[2022-06-05] MEDS: BLOOD SUGAR DIAGNOSTIC STRIP TEST SCH ×4 (08:00→22:25)
[2022-06-05 08:36] LABS: BG BASE EXCESS -0.7 mmol/L (-2.0-2.0); BG DEOXYHEMOGLOBIN 5.1 % (0.0-5.0); BG FRACTION INSPIRED OXYGEN 28; BG HCO3 ACT 23.1 mmol/L (22.0-26.0); BG METHEMOGLOBIN 0.2 % (0.0-1.5); BG OXYGEN SATURATION 94.9 % (92.0-98.5); BG OXYHEMOGLOBIN 94.7 % (94.0-97.0); BG PCO2 35.7 mmHg (35.0-45.0); BG PH 7.428 (7.350-7.450); BG PO2 72.2 mmHg (75.0-100.0); BG SAMPLE SITE RIGHT RADIAL; BG TOTAL HEMOGLOBIN 16.7 g/dL (12.0-18.0); BG VENT MODE NASAL CANNULA
[2022-06-05] MEDS: INSULIN LISPRO 100 UNITS/ML SUBCUT SCH ×4 (09:07→22:30)
[2022-06-05] MEDS: TAMSULOSIN HCL 0.4MG SR CAPSULE PO SCH (09:16)
[2022-06-05] MEDS: AMLODIPINE 10MG TABLET PO SCH (09:16)
[2022-06-05] MEDS: ASPIRIN 81MG EC TABLET PO SCH (09:16)
[2022-06-05] MEDS: HYDROCHLOROTHIAZIDE 25MG TABLET PO SCH (09:16)
[2022-06-05] MEDS: CLOPIDOGREL 75MG TABLET PO SCH (09:28)
[2022-06-05] MEDS: ENOXAPARIN 40MG/0.4ML SYR SUBCUT SCH (11:50)
[2022-06-05] MEDS: CEFTRIAXONE 1,000 MG in DEXTROSE 5% WATER 50 ML IV SCH (15:00)
[2022-06-05] MEDS: AZITHROMYCIN 500 MG in DEXT 5% WATER 250 ML IV SCH (15:28)
[2022-06-05] MEDS: FAMOTIDINE 20MG TABLET PO SCH (22:26)
[2022-06-06] VITALS (22 sets, daily range): BP systolic 54–164; BP diastolic 33–125
[2022-06-06] MEDS: METHYLPREDNISOLONE SOD SUCC 40 MG/ML VIAL IV SCH ×2 (03:00→12:33)
[2022-06-06 07:14] LABS: BASOPHILS % 0.1 % (0.0-2.0); HEMATOCRIT. 44.5 % (42.0-52.0); HEMOGLOBIN. 15.2 g/dL (14.0-18.0); LYMPHOCYTES % 7.4 % (20.0-50.0); MEAN CORPUSCULAR HEMOGLOBIN 32.1 pg (28.0-32.0); MEAN PLATELET VOLUME 9.1 fl (7.4-10.4); MONOCYTES % 3.9 % (2.0-8.0); NEUTROPHILS % 88.6 % (40.0-76.0); PLATELET 228 x1000/uL (130-400); RED BLOOD CELL COUNT 4.73 mill/uL (4.7-6.1)
[2022-06-06] MEDS: FUROSEMIDE 40MG/4ML VIAL IV SCH ×2 (07:15→18:19)
[2022-06-06] MEDS: INSULIN LISPRO 100 UNITS/ML SUBCUT SCH ×3 (08:00→18:29)
[2022-06-06] MEDS: BLOOD SUGAR DIAGNOSTIC STRIP TEST SCH ×3 (08:18→18:26)
[2022-06-06 08:58] LABS: BG BASE EXCESS 1.7 mmol/L (-2.0-2.0); BG CARBOXYHEMOGLOBIN 0.7 % (0.5-1.5); BG DEOXYHEMOGLOBIN 2.9 % (0.0-5.0); BG FRACTION INSPIRED OXYGEN 28; BG HCO3 ACT 25.9 mmol/L (22.0-26.0); BG METHEMOGLOBIN 0.3 % (0.0-1.5); BG OXYGEN SATURATION 97.1 % (92.0-98.5); BG OXYHEMOGLOBIN 96.1 % (94.0-97.0); BG PCO2 39.4 mmHg (35.0-45.0); BG PH 7.435 (7.350-7.450); BG SAMPLE SITE RIGHT RADIAL; BG TOTAL HEMOGLOBIN 16.3 g/dL (12.0-18.0); BG VENT MODE NASAL CANNULA
[2022-06-06] MEDS: HYDROCHLOROTHIAZIDE 25MG TABLET PO SCH (09:17)
[2022-06-06] MEDS: CLOPIDOGREL 75MG TABLET PO SCH (09:17)
[2022-06-06] MEDS: AMLODIPINE 10MG TABLET PO SCH (09:21)
[2022-06-06] MEDS: TAMSULOSIN HCL 0.4MG SR CAPSULE PO SCH (09:22)
[2022-06-06] MEDS: ASPIRIN 81MG EC TABLET PO SCH (09:26)
[2022-06-06] MEDS: ENOXAPARIN 40MG/0.4ML SYR SUBCUT SCH (12:33)
[2022-06-06] MEDS ORDERED: CLOP75TA15 PO (14:27)
[2022-06-06] MEDS ORDERED: FURO80TA87 PO (14:27)
[2022-06-06] MEDS ORDERED: AZIT500T8 PO (14:27)
[2022-06-06] MEDS ORDERED: COR3 PO (14:27)
[2022-06-06 16:03] LABS: CHLORIDE 101 mEq/L (98-107)
[2022-06-06 16:03] LABS: CHLORIDE 101 mEq/L (98-107)
[2022-06-06] MEDS: CEFTRIAXONE 1,000 MG in DEXTROSE 5% WATER 50 ML IV SCH (16:59)
[2022-06-06] MEDS: AZITHROMYCIN 500 MG in DEXT 5% WATER 250 ML IV SCH (16:59)
== END 2022-06-06 19:42 | disposition left against medical advice (07) | DRG 133 ==
LOC: ER 02:05 → 5EST 03:33 → EDBEDREQ 03:49 → EDBEDREQTM 03:49 → ENRESERV 08:53 → CANRESERV 08:53 → ENRESERV 09:16
PROVIDERS: ADMIT Internal Medicine; ATTEND Internal Medicine
PROC: 5A09357 Assistance with Respiratory Ventilation, Less than 24 Consecutive Hours, Continuous Positive Airway Pressure (ICD-10-PCS; principal; 2022-06-04)
DX: J96.01 Acute respiratory failure with hypoxia (principal); I21.A1 Myocardial infarction type 2; I50.23 Acute on chronic systolic (congestive) heart failure; I42.9 Cardiomyopathy, unspecified; R65.10 Systemic inflammatory response syndrome (SIRS) of non-infectious origin without acute organ dysfunction; I11.0 Hypertensive heart disease with heart failure; J44.9 Chronic obstructive pulmonary disease, unspecified; E78.5 Hyperlipidemia, unspecified; N40.0 Benign prostatic hyperplasia without lower urinary tract symptoms; Z20.822 Contact with and (suspected) exposure to COVID-19; I25.10 Atherosclerotic heart disease of native coronary artery without angina pectoris; F12.90 Cannabis use, unspecified, uncomplicated; F10.10 Alcohol abuse, uncomplicated; D72.829 Elevated white blood cell count, unspecified; F19.10 Other psychoactive substance abuse, uncomplicated; F17.210 Nicotine dependence, cigarettes, uncomplicated; Z98.61 Coronary angioplasty status; Z79.899 Other long term (current) drug therapy; Z86.011 Personal history of benign neoplasm of the brain; Z86.73 Personal history of transient ischemic attack (TIA), and cerebral infarction without residual deficits; Z53.29 Procedure and treatment not carried out because of patient's decision for other reasons
CPT/HCPCS: 36415; 36600; 71045; 80053; 80061; 80076; 82040; 82375; 82550; 82553; 82805; 82962; 83036; 83605; 83880; 84145; 84439; 84443; 84484; 85025; 85379; 87426; 93005; 93306; 93970; 94660; 99285; J0456; J0696; J1650; J1815; J1940; J2543; J2920; J3490; J7060

== ENCOUNTER 2022-11-15 06:48 | Inpatient (IN) | payer OTHER ==
[~2022-11-15] VITALS: Ht 188 cm; Wt 73.2 kg
[~2022-11-15 06:48] MED LIST changes: +AZIT500T8 PO; +CLOP75TA15 PO; +COR3 PO; +FURO80TA87 PO
[2022-11-15] MEDS ORDERED: NITROGLYCERIN 50MG PREMIX 250 ML IV ONE ×2 (07:00→07:15)
[2022-11-15 07:14] LABS: BASOPHILS % 0.8 % (0.0-2.0); EOSINOPHILS % 1.6 % (0.0-5.0); HEMATOCRIT. 46.3 % (42.0-52.0); HEMOGLOBIN. 15.2 g/dL (14.0-18.0); LYMPHOCYTES % 59.7 % (20.0-50.0); MEAN CORPUSCULAR HEMOGLOBIN 32.8 pg (28.0-32.0); MEAN CORPUSCULAR VOLUME 99.7 fL (80.0-94.0); MEAN PLATELET VOLUME 8.7 fl (7.4-10.4); MONOCYTES % 5.8 % (2.0-8.0); NEUTROPHILS % 32.1 % (40.0-76.0); PLATELET 206 x1000/uL (130-400); RED BLOOD CELL COUNT 4.64 mill/uL (4.7-6.1); RED CELL DISTRIBUTION WIDTH 14.2 % (11.6-14.6)
[2022-11-15] MEDS ORDERED: FUROSEMIDE 40MG/4ML VIAL IVP ONE (07:15)
[2022-11-15 07:25] LABS: PARTIAL THROMBOPLASTIN TIME 25.3 sec (23.4-31.0); PROTHROMBIN TIME 11.2 sec (9.6-11.0)
[2022-11-15 07:29] LABS: BG BASE EXCESS -6.1 mmol/L (-2.0-2.0); BG CARBOXYHEMOGLOBIN 2.3 % (0.5-1.5); BG DEOXYHEMOGLOBIN 0.4 % (0.0-5.0); BG HCO3 ACT 21.9 mmol/L (22.0-26.0); BG METHEMOGLOBIN 0.6 % (0.0-1.5); BG OXYGEN SATURATION 99.6 % (92.0-98.5); BG OXYHEMOGLOBIN 96.7 % (94.0-97.0); BG PCO2 52.6 mmHg (35.0-45.0); BG PH 7.237 (7.350-7.450); BG PO2 287.8 mmHg (75.0-100.0); BG SAMPLE SITE RIGHT BRACHIAL; BG TOTAL HEMOGLOBIN 15.9 g/dL (12.0-18.0); BG VENT MODE MASK - BIPAP
[2022-11-15 07:41] LABS: CHLORIDE 114 mEq/L (98-107)
[2022-11-15] MEDS ORDERED: METHYLPREDNISOLONE SOD SUCC 125 MG/2 ML VIAL IV ONE (08:15)
[2022-11-15] MEDS ORDERED: LOSARTAN POTASSIUM 50 MG TABLET PO NR (10:45)
[2022-11-15] MEDS ORDERED: POTASSIUM CHLORIDE 20MEQ TABLET SR PO NR (10:45)
[2022-11-15 11:29] LABS: *AMPHETAMINES SCREEN URINE NEGATIVE (NEGATIVE); *BARBITURATES SCREEN URINE NEGATIVE (NEGATIVE); *BENZODIAZEPINES SCREEN URINE NEGATIVE (NEGATIVE); *COCAINE SCREEN URINE NEGATIVE (NEGATIVE); CANNABINOID URINE SCREEN PRESUMTIVE POSITIVE (NEGATIVE); METHADONE URINE SCREEN NEGATIVE (NEGATIVE); OPIATES URINE SCREEN NEGATIVE (NEGATIVE); PHENCYCLIDINE URINE SCREEN NEGATIVE (NEGATIVE)
[2022-11-15] MEDS ORDERED: IPRATROPIUM/ALBUTEROL 0.5-3(2.5)MG/3ML NEB HHN PRN (12:00)
[2022-11-15 12:20] LABS: BG CARBOXYHEMOGLOBIN 1.3 % (0.5-1.5); BG HCO3 ACT 25.2 mmol/L (22.0-26.0); BG METHEMOGLOBIN 0.5 % (0.0-1.5); BG OXYHEMOGLOBIN 96.2 % (94.0-97.0); BG PH 7.386 (7.350-7.450); BG PO2 98.4 mmHg (75.0-100.0); BG SAMPLE SITE RIGHT RADIAL; BG TOTAL HEMOGLOBIN 15.6 g/dL (12.0-18.0); BG VENT MODE MASK - BIPAP
[2022-11-15 16:00] VITALS: BP 142/98
[2022-11-15] MEDS: BUDESONIDE 0.5MG/2ML NEB HHN SCH ×2 (16:38→20:27)
[2022-11-15] MEDS: FUROSEMIDE 40MG/4ML VIAL IVP SCH (17:42)
[2022-11-15 17:45] VITALS: BP 150/112
[2022-11-15 18:00] VITALS: BP 156/109
[2022-11-15 20:00] VITALS: BP 153/99
[2022-11-15] MEDS ORDERED: ACETAMINOPHEN 325MG TABLET PO PRN (20:45)
[2022-11-15] MEDS ORDERED: ATORVASTATIN CALCIUM 10MG TABLET PO SCH (21:00)
[2022-11-15 22:00] VITALS: BP 134/112
[2022-11-16] VITALS (8 sets, daily range): BP systolic 119–145; BP diastolic 54–96
[2022-11-16] MEDS: FUROSEMIDE 40MG/4ML VIAL IVP SCH (08:43)
[2022-11-16] MEDS ORDERED: TAMSULOSIN HCL 0.4MG SR CAPSULE PO SCH (09:00)
[2022-11-16] MEDS ORDERED: AMLODIPINE 10MG TABLET PO SCH (09:00)
[2022-11-16] MEDS ORDERED: ASPIRIN 81MG EC TABLET PO SCH (09:00)
[2022-11-16] MEDS ORDERED: SPIRONOLACTONE 25MG TABLET PO SCH (09:00)
[2022-11-16] MEDS ORDERED: HYDROCHLOROTHIAZIDE 25MG TABLET PO SCH (09:00)
[2022-11-16] MEDS ORDERED: CLOPIDOGREL 75MG TABLET PO SCH (09:00)
[2022-11-16 12:58] LABS: CHLORIDE 104 mEq/L (98-107)
== END 2022-11-16 15:35 | disposition home or self-care (01) | DRG 194 ==
LOC: ER 06:48 → 5EST 09:14
PROVIDERS: ADMIT Internal Medicine; ATTEND Internal Medicine
PROC: 5A09357 Assistance with Respiratory Ventilation, Less than 24 Consecutive Hours, Continuous Positive Airway Pressure (ICD-10-PCS; principal; 2022-11-15)
DX: I11.0 Hypertensive heart disease with heart failure (principal); J96.01 Acute respiratory failure with hypoxia; I50.23 Acute on chronic systolic (congestive) heart failure; J44.9 Chronic obstructive pulmonary disease, unspecified; E87.6 Hypokalemia; I16.1 Hypertensive emergency; E78.5 Hyperlipidemia, unspecified; Z20.822 Contact with and (suspected) exposure to COVID-19; I25.10 Atherosclerotic heart disease of native coronary artery without angina pectoris; N40.0 Benign prostatic hyperplasia without lower urinary tract symptoms; F17.210 Nicotine dependence, cigarettes, uncomplicated; Z79.899 Other long term (current) drug therapy; Z86.73 Personal history of transient ischemic attack (TIA), and cerebral infarction without residual deficits
CPT/HCPCS: 36415; 36600; 71045; 80048; 80053; 80305; 82375; 82805; 83605; 83735; 83880; 84100; 84145; 84484; 85025; 85379; 87426; 87804; 93005; 93970; 94640; 94660; 99291; C9803; J1940; J2930; J3490; J7626

== ENCOUNTER 2024-02-08 07:02 | Emergency (ER) | payer OTHER ==
[~2024-02-08] VITALS: Ht 185.4 cm; Wt 80.0 kg
[2024-02-08] VITALS (7 sets, daily range): BP systolic 157; BP diastolic 104; PULSE 83–100; RESP 11–20; TEMP 97.6; O2SAT 98–100
[2024-02-08 07:56] LABS: BASOPHILS % 0.4 % (0.0-2.0); EOSINOPHILS % 2.7 % (0.0-5.0); HEMATOCRIT. 46.2 % (42.0-52.0); HEMOGLOBIN. 15.6 g/dL (14.0-18.0); LYMPHOCYTES % 42.2 % (20.0-50.0); MEAN CORPUSCULAR HEMOGLOBIN 33.1 pg (28.0-32.0); MEAN CORPUSCULAR HGB CONC 33.8 g/dL (31.0-37.0); MEAN PLATELET VOLUME 8.8 fl (7.4-10.4); MONOCYTES % 7.7 % (2.0-8.0); PLATELET 202 x1000/uL (130-400); RED BLOOD CELL COUNT 4.72 mill/uL (4.7-6.1); RED CELL DISTRIBUTION WIDTH 12.9 % (11.6-14.6); WHITE BLOOD COUNT 5.2 x1000/uL (4.5-11.0)
[2024-02-08 07:57] LABS: CHLORIDE 109 mEq/L (98-107); POTASSIUM 3.5 mEq/L (3.5-5.1); SODIUM 141 mEq/L (136-145)
[2024-02-08 07:58] LABS: CARBON DIOXIDE 30 mEq/L (21-32)
[2024-02-08 07:59] LABS: CALCIUM 9.3 mg/dL (8.7-10.4)
[2024-02-08 08:03] LABS: CREATININE 1.2 mg/dL (0.6-1.3); GLUCOSE 125 mg/dL (70-105); UREA NITROGEN BLOOD 11 mg/dL (9-23)
[2024-02-08 08:05] LABS: TROPONIN I HIGH SENSITIVITY 24 ng/L (3.0-53)
[2024-02-08] MEDS: IPRATROPIUM BROMIDE (0.02%) 0.5MG/2.5ML NEB HHN STA (08:05)
[2024-02-08] MEDS: ALBUTEROL (0.083%) 2.5MG/3ML NEB HHN SCH (08:05)
[2024-02-08] MEDS: AMLODIPINE 10MG TABLET PO ONE (08:30)
[2024-02-08] MEDS: FUROSEMIDE 100MG/10ML VIAL IVP ONE (08:30)
[2024-02-08 08:48] LABS: BG BASE EXCESS 0.8 mmol/L (-2.0-2.0); BG CARBOXYHEMOGLOBIN 1.8 % (0.5-1.5); BG DEOXYHEMOGLOBIN 2.9 % (0.0-5.0); BG FRACTION INSPIRED OXYGEN 34; BG HCO3 ACT 24.8 mmol/L (22.0-26.0); BG METHEMOGLOBIN 0.3 % (0.0-1.5); BG PCO2 37.9 mmHg (35.0-45.0); BG PH 7.433 (7.350-7.450); BG PO2 90.5 mmHg (75.0-100.0); BG SAMPLE SITE RIGHT RADIAL; BG TOTAL HEMOGLOBIN 16.5 g/dL (12.0-18.0); BG VENT MODE NASAL CANNULA
[2024-02-08] MEDS: IPRATROPIUM/ALBUTEROL 0.5-3(2.5)MG/3ML NEB HHN ONE (10:23)
== END 2024-02-08 12:40 | disposition left against medical advice (07) ==
LOC: ER 07:15 → CANBEDREQ 10:14 → ER 12:40
DX: R06.02 Shortness of breath (principal); I11.0 Hypertensive heart disease with heart failure; I50.9 Heart failure, unspecified; J44.9 Chronic obstructive pulmonary disease, unspecified; E78.00 Pure hypercholesterolemia, unspecified; I25.2 Old myocardial infarction; Z79.899 Other long term (current) drug therapy
CPT/HCPCS: 80048; 83880; 85025; 84484; 36415; 71045; 94640; 82805; 82375; 93005; 96374; 99285; 36600; J1940; Z7610 ×6

== ENCOUNTER 2024-02-17 09:38 | Emergency (ER) | payer OTHER ==
[~2024-02-17] VITALS: Ht 188 cm; Wt 80.0 kg
[2024-02-17 09:48] VITALS: TEMP 97.6; O2SAT 99
[2024-02-17 10:46] LABS: BASOPHILS % 0.9 % (0.0-2.0); EOSINOPHILS % 1.1 % (0.0-5.0); HEMATOCRIT. 43.1 % (42.0-52.0); HEMOGLOBIN. 14.6 g/dL (14.0-18.0); MEAN CORPUSCULAR HEMOGLOBIN 33.3 pg (28.0-32.0); MEAN CORPUSCULAR HGB CONC 33.8 g/dL (31.0-37.0); MEAN CORPUSCULAR VOLUME 98.5 fL (80.0-94.0); MONOCYTES % 5.9 % (2.0-8.0); NEUTROPHILS % 68.1 % (40.0-76.0); PLATELET 206 x1000/uL (130-400); RED BLOOD CELL COUNT 4.38 mill/uL (4.7-6.1); RED CELL DISTRIBUTION WIDTH 13.2 % (11.6-14.6); WHITE BLOOD COUNT 5.4 x1000/uL (4.5-11.0)
[2024-02-17 10:48] VITALS: BP 139/96; PULSE 96; RESP 18; O2SAT 99
[2024-02-17] MEDS: FUROSEMIDE 40MG/4ML VIAL IVP SCH (10:49)
[2024-02-17 10:53] LABS: CLARITY URINE CLEAR (CLEAR); COLOR URINE YELLOW (YELLOW); GLUCOSE URINE NEGATIVE (NEGATIVE); KETONES URINE NEGATIVE (NEGATIVE); LEUKOCYTE ESTERASE URINE 1+ (NEGATIVE); NITRITE URINE NEGATIVE (NEGATIVE); OCCULT BLOOD URINE NEGATIVE (NEGATIVE); PROTEIN URINE 1+ (NEGATIVE); SPECIFIC GRAVITY URINE 1.017 (1.005-1.030)
[2024-02-17 10:55] LABS: CARBON DIOXIDE 27 mEq/L (21-32); CHLORIDE 111 mEq/L (98-107); POTASSIUM 3.8 mEq/L (3.5-5.1); SODIUM 142 mEq/L (136-145)
[2024-02-17 10:56] LABS: CALCIUM 9.3 mg/dL (8.7-10.4); PROTHROMBIN TIME 10.9 sec (9.6-11.0)
[2024-02-17 11:01] LABS: CREATININE 1.1 mg/dL (0.6-1.3); GLUCOSE 96 mg/dL (70-105); UREA NITROGEN BLOOD 11 mg/dL (9-23)
[2024-02-17 11:02] LABS: ALANINE AMINOTRANSFERASE 9 IU/L (10-49)
[2024-02-17 11:03] LABS: ALBUMIN 4.1 g/dL (3.2-4.8); ASPARTATE AMINOTRANSFERASE 21 IU/L (<34); BILIRUBIN DIRECT 0.3 mg/dL (<=3.0); BILIRUBIN TOTAL 1.1 mg/dL (0.1-1.0); PROTEIN TOTAL 7.1 g/dL (6.0-8.3)
[2024-02-17 11:03] LABS: BACTERIA URINE 1+; RBC URINE NONE SEEN /hpf (0-2); SQUAMOUS EPITHELIAL CELL URINE 1+ /lpf (RARE/1+); WBC URINE 15-25 /hpf (0-2); YEAST URINE NONE SEEN
[2024-02-17 11:37] LABS: TROPONIN I HIGH SENSITIVITY 97 ng/L (3.0-53)
[2024-02-17] MEDS: ASPIRIN 325MG EC TABLET PO NR (12:39)
[2024-02-17] MEDS: ENOXAPARIN 80MG/0.8ML SYR SUBCUT SCH (12:40)
== END 2024-02-17 12:52 | disposition left against medical advice (07) ==
LOC: ER 09:38
DX: R06.02 Shortness of breath (principal); J44.1 Chronic obstructive pulmonary disease with (acute) exacerbation; I11.0 Hypertensive heart disease with heart failure; I50.9 Heart failure, unspecified; F12.10 Cannabis abuse, uncomplicated; Z79.82 Long term (current) use of aspirin; Z79.899 Other long term (current) drug therapy
CPT/HCPCS: 99291; 96374; 71045; 80076; 80048; 81003; 83880; 83690; 85025; 85610; 87086; 84484; 36415; 93005; 96372; J1650; J1940

== ENCOUNTER → 2024-03-06 | Emergency (ER) | payer OTHER ==
[~2024-03-06] VITALS: Ht 177.8 cm; Wt 69.9 kg
[2024-03-06 07:55] VITALS: RESP 36
[2024-03-06] MEDS: NITROGLYCERIN OINT 1GM/INCH UDPKT TD ONE (08:07)
[2024-03-06 08:28] LABS: BASOPHILS % 0.8 % (0.0-2.0); EOSINOPHILS % 2.1 % (0.0-5.0); HEMATOCRIT. 43.1 % (42.0-52.0); HEMOGLOBIN. 14.3 g/dL (14.0-18.0); LYMPHOCYTES % 53.4 % (20.0-50.0); MEAN CORPUSCULAR HEMOGLOBIN 32.8 pg (28.0-32.0); MEAN CORPUSCULAR HGB CONC 33.1 g/dL (31.0-37.0); MEAN CORPUSCULAR VOLUME 99.2 fL (80.0-94.0); MEAN PLATELET VOLUME 9.1 fl (7.4-10.4); MONOCYTES % 5.7 % (2.0-8.0); PLATELET 181 x1000/uL (130-400); RED BLOOD CELL COUNT 4.34 mill/uL (4.7-6.1); RED CELL DISTRIBUTION WIDTH 13.1 % (11.6-14.6)
[2024-03-06 08:36] LABS: CHLORIDE 110 mEq/L (98-107); SODIUM 140 mEq/L (136-145)
[2024-03-06 08:38] LABS: CARBON DIOXIDE 21 mEq/L (21-32)
[2024-03-06 08:43] LABS: CREATININE 1.3 mg/dL (0.6-1.3); GLUCOSE 222 mg/dL (70-105); UREA NITROGEN BLOOD 13 mg/dL (9-23)
[2024-03-06 09:09] LABS: BG BASE EXCESS -4.7 mmol/L (-2.0-3.0); BG DEOXYHEMOGLOBIN 2.6 % (0.0-5.0); BG FRACTION INSPIRED OXYGEN 50; BG HCO3 ACT 20.8 mmol/L (21.0-28.0); BG METHEMOGLOBIN 0.3 % (0.5-1.5); BG OXYGEN SATURATION 97.3 % (94.0-98.0); BG OXYHEMOGLOBIN 95.1 % (94.0-98.0); BG PH 7.333 (7.350-7.450); BG SAMPLE SITE RIGHT BRACHIAL; BG TOTAL HEMOGLOBIN 14.8 g/dL (13.5-17.5); BG VENT MODE MASK - BIPAP
[2024-03-06 09:43] LABS: TROPONIN I HIGH SENSITIVITY 30 ng/L (3.0-53)
[2024-03-06 10:29] VITALS: RESP 23
[2024-03-06] MEDS: FUROSEMIDE 40MG/4ML VIAL IVP NR (10:52)
[2024-03-06 15:30] VITALS: BP 151/102; TEMP 36.83628; O2SAT 100
[2024-03-06 16:07] VITALS: PULSE 82; RESP 16; O2SAT 97
[2024-03-06] MEDS: IPRATROPIUM/ALBUTEROL 0.5-3(2.5)MG/3ML NEB HHN SCH (16:07)
[2024-03-06] MEDS: AZITHROMYCIN 500MG/250ML 250 ML IV SCH (16:31)
== END ==
LOC: ER 07:53 → UNDOADMIN 11:21 → 5WST 11:21 → EDBEDREQ 11:24 → EDBEDREQTM 11:24 → EDBEDREQSVC 11:24 → UNDODISIN 20:14
DX: J96.91 Respiratory failure, unspecified with hypoxia (principal); J81.0 Acute pulmonary edema; I11.0 Hypertensive heart disease with heart failure; I50.9 Heart failure, unspecified; J44.1 Chronic obstructive pulmonary disease with (acute) exacerbation; Z79.82 Long term (current) use of aspirin
CPT/HCPCS: 80048; 83880; 85025; 84484; 36415; 71045; 94640; 82805; 82375; 93005; 96365; 96375; 99291; 36600; J0456; J1940; Z7610 ×2; 99285

== ENCOUNTER 2024-04-10 07:41 | Emergency (ER) | payer OTHER ==
[~2024-04-10] VITALS: Ht 165.1 cm; Wt 80.0 kg
[2024-04-10 07:50] VITALS: RESP 29
[2024-04-10] MEDS ORDERED: NITROGLYCERIN 50MG PREMIX 250 ML IV ONE (08:00)
[2024-04-10] MEDS: NITROGLYCERIN 50MG PREMIX 250 ML IV ONE (08:22)
[2024-04-10 08:43] LABS: BASOPHILS % 0.7 % (0.0-2.0); EOSINOPHILS % 3.7 % (0.0-5.0); HEMATOCRIT. 44.6 % (42.0-52.0); HEMOGLOBIN. 14.6 g/dL (14.0-18.0); LYMPHOCYTES % 43.3 % (20.0-50.0); MEAN CORPUSCULAR HEMOGLOBIN 32.4 pg (28.0-32.0); MEAN CORPUSCULAR HGB CONC 32.7 g/dL (31.0-37.0); MEAN CORPUSCULAR VOLUME 99.1 fL (80.0-94.0); MEAN PLATELET VOLUME 8.3 fl (7.4-10.4); MONOCYTES % 6.6 % (2.0-8.0); NEUTROPHILS % 45.7 % (40.0-76.0); PLATELET 262 x1000/uL (130-400); RED CELL DISTRIBUTION WIDTH 13.6 % (11.6-14.6); WHITE BLOOD COUNT 4.2 x1000/uL (4.5-11.0)
[2024-04-10 08:52] LABS: CHLORIDE 109 mEq/L (98-107); POTASSIUM 3.2 mEq/L (3.5-5.1); SODIUM 141 mEq/L (136-145)
[2024-04-10 08:53] LABS: CARBON DIOXIDE 25 mEq/L (21-32)
[2024-04-10 08:58] LABS: CREATININE 1.1 mg/dL (0.6-1.3); GLUCOSE 157 mg/dL (70-105); UREA NITROGEN BLOOD 11 mg/dL (9-23)
[2024-04-10 08:59] LABS: TROPONIN I HIGH SENSITIVITY 21 ng/L (3.0-53)
[2024-04-10 11:00] VITALS: RESP 28
[2024-04-10] MEDS: AMLODIPINE 5MG TABLET PO SCH (12:30)
[2024-04-10] MEDS ORDERED: DOCUSATE SODIUM 100MG CAPSULE PO PRN (12:30)
[2024-04-10] MEDS ORDERED: ACETAMINOPHEN 650MG/20.3ML UDC GT PRN (12:30)
[2024-04-10] MEDS ORDERED: IPRATROPIUM BROMIDE (0.02%) 0.5MG/2.5ML NEB HHN PRN (12:30)
[2024-04-10] MEDS ORDERED: MAGNESIUM/ALUMINUM HYDROXIDE/SIMETHICONE 30ML UDC PO PRN (12:30)
[2024-04-10] MEDS ORDERED: CEFTRIAXONE 1GM/50ML 50 ML IV SCH (12:30)
[2024-04-10 13:46] LABS: CLARITY URINE CLEAR (CLEAR); COLOR URINE YELLOW (YELLOW); GLUCOSE URINE NEGATIVE (NEGATIVE); KETONES URINE NEGATIVE (NEGATIVE); LEUKOCYTE ESTERASE URINE NEGATIVE (NEGATIVE); NITRITE URINE NEGATIVE (NEGATIVE); OCCULT BLOOD URINE NEGATIVE (NEGATIVE); PROTEIN URINE NEGATIVE (NEGATIVE); SPECIFIC GRAVITY URINE 1.007 (1.005-1.030); UROBILINOGEN URINE 0.2 E.U./dL (0.2-1.0)
[2024-04-10] MEDS: TAMSULOSIN HCL 0.4MG SR CAPSULE PO SCH (13:51)
[2024-04-10] MEDS: FUROSEMIDE 40MG/4ML VIAL IVP SCH (13:51)
[2024-04-10] MEDS: CLOPIDOGREL 75MG TABLET PO SCH (13:51)
[2024-04-10] MEDS: POTASSIUM CHLORIDE 20MEQ TABLET SR PO NR (13:51)
[2024-04-10 13:58] LABS: *AMPHETAMINES SCREEN URINE NEGATIVE (NEGATIVE); *BARBITURATES SCREEN URINE NEGATIVE (NEGATIVE); *BENZODIAZEPINES SCREEN URINE NEGATIVE (NEGATIVE); *COCAINE SCREEN URINE PRESUMPTIVE POSITIVE (NEGATIVE); CANNABINOID URINE SCREEN PRESUMPTIVE POSITIVE (NEGATIVE); ECSTASY MDMA SCREEN URINE NEGATIVE (NEGATIVE); METHADONE URINE SCREEN NEGATIVE (NEGATIVE); OPIATES URINE SCREEN NEGATIVE (NEGATIVE); PHENCYCLIDINE URINE SCREEN NEGATIVE (NEGATIVE)
[2024-04-10] MEDS: HYDROCHLOROTHIAZIDE 25MG TABLET PO SCH (14:00)
[2024-04-10 14:11] VITALS: TEMP 36.66960
[2024-04-10] MEDS: MAGNESIUM 2 G PREMIX 50 ML IV NR (14:54)
[2024-04-10 14:58] LABS: CREATINE KINASE MB FRACTION 3.5 ng/mL (0.5-3.6)
[2024-04-10] MEDS: CEFTRIAXONE 1GM/50ML 50ML IV SCH (15:07)
[2024-04-10] MEDS: DOXYCYCLINE 100MG/100ML 100 ML IV SCH (15:12)
[2024-04-10] MEDS: BUDESONIDE 0.5MG/2ML NEB HHN SCH (15:20)
[2024-04-10] MEDS: IPRATROPIUM BROMIDE (0.02%) 0.5MG/2.5ML NEB HHN SCH (15:20)
[2024-04-10] MEDS: ACETYLCYSTEINE 200MG/ML 20% VIAL 4ML INH SCH (15:20)
[2024-04-10] MEDS ORDERED: IPRATROPIUM/ALBUTEROL 0.5-3(2.5)MG/3ML NEB HHN PRN (15:45)
[2024-04-10 16:46] VITALS: PULSE 80; RESP 18; O2SAT 98
[2024-04-10] MEDS ORDERED: IPRATROPIUM/ALBUTEROL 0.5-3(2.5)MG/3ML NEB HHN SCH (18:00)
[2024-04-10 19:07] VITALS: BP 126/88; PULSE 88; RESP 17; O2SAT 98
[2024-04-10] MEDS ORDERED: ATORVASTATIN CALCIUM 10MG TABLET PO SCH (21:00)
[2024-04-10] MEDS ORDERED: FAMOTIDINE 20MG TABLET PO SCH (21:00)
[2024-04-11] MEDS ORDERED: ASPIRIN 81MG EC TABLET PO SCH (09:00)
== END 2024-04-10 19:10 | disposition left against medical advice (07) ==
LOC: ER 07:41 → EDBEDREQTM 10:18 → EDBEDREQ 10:18 → EDBEDREQSVC 13:38 → ER 19:10
DX: J81.0 Acute pulmonary edema (principal); I11.0 Hypertensive heart disease with heart failure; I50.9 Heart failure, unspecified; F12.10 Cannabis abuse, uncomplicated; Z79.899 Other long term (current) drug therapy; Z86.73 Personal history of transient ischemic attack (TIA), and cerebral infarction without residual deficits; Z79.82 Long term (current) use of aspirin; Z20.822 Contact with and (suspected) exposure to COVID-19
CPT/HCPCS: 80305; 80048; 81003; 82550; 82553; 83036; 83880; 83605; 83690; 83735; 84100; 85025; 85379; 84484; 87804 ×2; 36415; 84145; 71045; 93970; 94640; 82803; 94660; 93005; 96367; 96368; 96365; 96375; 99291; 87426; J0696; J3490 ×2; J1940; J3475; J7608; J7626; Z7610 ×4

== ENCOUNTER 2024-06-09 20:59 | Inpatient (IN) | payer OTHER ==
[~2024-06-09] VITALS: Ht 170.2 cm; Wt 67.7 kg
[~2024-06-09 20:59] MED LIST changes: +FLUT1DIS3 INH; +P20 PO
[2024-06-09 21:06] VITALS: RESP 22
[2024-06-09] MEDS: METHYLPREDNISOLONE SOD SUCC 125MG/2ML (ACT-O-VIAL) IV STA (21:24)
[2024-06-09] MEDS: IPRATROPIUM BROMIDE (0.02%) 0.5MG/2.5ML NEB HHN STA (21:28)
[2024-06-09] MEDS: ALBUTEROL (0.083%) 2.5MG/3ML NEB HHN SCH (21:29)
[2024-06-09 22:05] LABS: BASOPHILS % 0.8 % (0.0-2.0); CHLORIDE 109 mEq/L (98-107); EOSINOPHILS % 1.9 % (0.0-5.0); HEMATOCRIT. 45.6 % (42.0-52.0); HEMOGLOBIN. 15.4 g/dL (14.0-18.0); LYMPHOCYTES % 64.5 % (20.0-50.0); MEAN CORPUSCULAR HEMOGLOBIN 33.4 pg (28.0-32.0); MEAN CORPUSCULAR HGB CONC 33.7 g/dL (31.0-37.0); MEAN CORPUSCULAR VOLUME 99.1 fL (80.0-94.0); MONOCYTES % 4.4 % (2.0-8.0); NEUTROPHILS % 28.4 % (40.0-76.0); PLATELET 190 x1000/uL (130-400); POTASSIUM 3.1 mEq/L (3.5-5.1); RED CELL DISTRIBUTION WIDTH 13.9 % (11.6-14.6); SODIUM 141 mEq/L (136-145); WHITE BLOOD COUNT 5.2 x1000/uL (4.5-11.0)
[2024-06-09 22:06] LABS: CALCIUM 9.1 mg/dL (8.7-10.4); CARBON DIOXIDE 23 mEq/L (21-32)
[2024-06-09 22:11] LABS: CREATININE 1.2 mg/dL (0.6-1.3); GLUCOSE 162 mg/dL (70-105); UREA NITROGEN BLOOD 14 mg/dL (9-23)
[2024-06-09 22:13] LABS: TROPONIN I HIGH SENSITIVITY 40 ng/L (3.0-53)
[2024-06-09 22:18] LABS: ETHANOL BLOOD < 10 mg/dL (<10)
[2024-06-09] MEDS ORDERED: KCL 10MEQ/50ML PREMIX 50 ML IV ONE (23:30)
[2024-06-10] VITALS (15 sets, daily range): BP systolic 98–154; BP diastolic 72–111; PULSE 64–97; RESP 14–25; TEMP 36.1956–36.50292; O2SAT 97–100
[2024-06-10] MEDS: KCL 10MEQ/50ML PREMIX 50 ML IV NR (05:18)
[2024-06-10] MEDS ORDERED: ZOLPIDEM TARTRATE 5MG TABLET PO PRN (08:15)
[2024-06-10] MEDS ORDERED: ONDANSETRON HCL 4MG/2ML INJ IV PRN (08:15)
[2024-06-10] MEDS ORDERED: ACETAMINOPHEN 325MG TABLET PO PRN (08:15)
[2024-06-10] MEDS ORDERED: HYDROCODONE/ACETAMINOPHEN 5/325MG TABLET PO PRN (08:15)
[2024-06-10] MEDS: ENOXAPARIN 40MG/0.4ML SYR SUBCUT SCH (08:28)
[2024-06-10] MEDS: FUROSEMIDE 40MG TABLET PO SCH (08:29)
[2024-06-10] MEDS ORDERED: NALOXONE HCL 0.4MG/ML VIAL IV PRN (08:30)
[2024-06-10] MEDS ORDERED: FUROSEMIDE 40MG/4ML VIAL IVP SCH (09:00)
[2024-06-10] MEDS: IPRATROPIUM/ALBUTEROL 0.5-3(2.5)MG/3ML NEB HHN SCH (11:37)
[2024-06-10] MEDS ORDERED: GUAIFENESIN 200MG/10ML SUGAR FREE UDC PO PRN (12:00)
[2024-06-10] MEDS: POTASSIUM CHLORIDE 20MEQ TABLET SR PO SCH (12:08)
[2024-06-10] MEDS: CLONIDINE 0.1MG TABLET PO PRN (12:08)
[2024-06-10] MEDS: AMLODIPINE 5MG TABLET PO SCH (15:03)
[2024-06-10 18:52] LABS: CREATINE KINASE MB FRACTION 6.5 ng/mL (0.5-3.6)
[2024-06-10] MEDS: BUDESONIDE 0.5MG/2ML NEB HHN SCH (20:17)
[2024-06-10] MEDS: CARVEDILOL 6.25 MG TABLET PO SCH (21:00)
[2024-06-11] VITALS (13 sets, daily range): BP systolic 99–134; BP diastolic 75–93; PULSE 58–98; RESP 10–25; TEMP 36.22512–36.78072; O2SAT 92–100
[2024-06-11 00:58] LABS: CREATINE KINASE MB FRACTION 3.9 ng/mL (0.5-3.6)
[2024-06-11 07:25] LABS: BASOPHILS % 0.3 % (0.0-2.0); EOSINOPHILS % 0.2 % (0.0-5.0); HEMATOCRIT. 38.1 % (42.0-52.0); HEMOGLOBIN. 12.8 g/dL (14.0-18.0); LYMPHOCYTES % 26.7 % (20.0-50.0); MEAN CORPUSCULAR HEMOGLOBIN 32.7 pg (28.0-32.0); MEAN CORPUSCULAR HGB CONC 33.5 g/dL (31.0-37.0); MEAN CORPUSCULAR VOLUME 97.7 fL (80.0-94.0); MEAN PLATELET VOLUME 9.5 fl (7.4-10.4); MONOCYTES % 8.5 % (2.0-8.0); NEUTROPHILS % 64.3 % (40.0-76.0); PLATELET 170 x1000/uL (130-400); RED CELL DISTRIBUTION WIDTH 13.5 % (11.6-14.6); WHITE BLOOD COUNT 11.1 x1000/uL (4.5-11.0)
[2024-06-11 07:51] LABS: CALCIUM 9.3 mg/dL (8.7-10.4); CHLORIDE 107 mEq/L (98-107); POTASSIUM 3.9 mEq/L (3.5-5.1); SODIUM 141 mEq/L (136-145)
[2024-06-11 07:52] LABS: CARBON DIOXIDE 29 mEq/L (21-32)
[2024-06-11 07:57] LABS: CREATININE 1.1 mg/dL (0.6-1.3); GLUCOSE 99 mg/dL (70-105); UREA NITROGEN BLOOD 20 mg/dL (9-23)
[2024-06-11 10:35] LABS: BG DEOXYHEMOGLOBIN 6.1 % (0.0-5.0); BG FRACTION INSPIRED OXYGEN 21; BG METHEMOGLOBIN 0.3 % (0.5-1.5); BG OXYGEN SATURATION 93.8 % (94.0-98.0); BG OXYHEMOGLOBIN 92.6 % (94.0-98.0); BG PH 7.421 (7.350-7.450); BG PO2 68.9 mmHg (83.0-108.0); BG SAMPLE SITE RIGHT BRACHIAL; BG TOTAL HEMOGLOBIN 13.7 g/dL (13.5-17.5); BG VENT MODE ROOM AIR
[2024-06-11] MEDS ORDERED: FURO80TA87 PO (13:10)
[2024-06-11] MEDS ORDERED: P20 PO (13:10)
[2024-06-11] MEDS ORDERED: SPIRONOLACTONE 12.5MG TABLET PO SCH (14:45)
[2024-06-11] MEDS ORDERED: CARVEDILOL 12.5MG TABLET PO SCH (21:00)
[2024-06-11] MEDS ORDERED: AMLODIPINE 2.5MG TABLET PO SCH (21:00)
== END 2024-06-11 15:35 | disposition home or self-care (01) | DRG 194 ==
LOC: ER 20:59 → EDBEDREQTM 23:51 → EDBEDREQ 23:51 → 5EST 06-10 00:14
PROVIDERS: ADMIT Internal Medicine; ATTEND Internal Medicine
PROC: 5A09357 Assistance with Respiratory Ventilation, Less than 24 Consecutive Hours, Continuous Positive Airway Pressure (ICD-10-PCS; principal; 2024-06-10)
PROC: 5A09357 Assistance with Respiratory Ventilation, Less than 24 Consecutive Hours, Continuous Positive Airway Pressure (ICD-10-PCS; 2024-06-11)
DX: I11.0 Hypertensive heart disease with heart failure (principal); J96.01 Acute respiratory failure with hypoxia; I42.9 Cardiomyopathy, unspecified; I50.23 Acute on chronic systolic (congestive) heart failure; E78.5 Hyperlipidemia, unspecified; N40.0 Benign prostatic hyperplasia without lower urinary tract symptoms; F12.10 Cannabis abuse, uncomplicated; F17.210 Nicotine dependence, cigarettes, uncomplicated; I34.0 Nonrheumatic mitral (valve) insufficiency; Z91.148 Patient's other noncompliance with medication regimen for other reason; J44.9 Chronic obstructive pulmonary disease, unspecified
CPT/HCPCS: 36415; 36600; 71045; 80048; 80320; 82375; 82553; 82805; 83880; 84484; 85025; 93005; 93306; 93970; 94070; 94640; 94660; 99291; J1650; J2919; J3480; J7626; G0480

== ENCOUNTER 2024-07-27 10:36 | Emergency (ER) | payer OTHER ==
[~2024-07-27] VITALS: Ht 190.5 cm; Wt 82.0 kg
[~2024-07-27 10:36] MED LIST changes: -AZIT500T8 PO
[2024-07-27 10:37] VITALS: O2SAT 68
[2024-07-27 11:03] VITALS: RESP 29
[2024-07-27 11:10] LABS: EOSINOPHILS % 3.9 % (0.0-5.0); HEMATOCRIT. 45.1 % (42.0-52.0); HEMOGLOBIN. 14.8 g/dL (14.0-18.0); LYMPHOCYTES % 60.9 % (20.0-50.0); MEAN CORPUSCULAR HEMOGLOBIN 32.3 pg (28.0-32.0); MEAN CORPUSCULAR HGB CONC 32.9 g/dL (31.0-37.0); MEAN CORPUSCULAR VOLUME 98.1 fL (80.0-94.0); MEAN PLATELET VOLUME 8.9 fl (7.4-10.4); MONOCYTES % 4.8 % (2.0-8.0); NEUTROPHILS % 29.4 % (40.0-76.0); PLATELET 217 x1000/uL (130-400); RED BLOOD CELL COUNT 4.59 mill/uL (4.7-6.1); RED CELL DISTRIBUTION WIDTH 13.1 % (11.6-14.6); WHITE BLOOD COUNT 5.9 x1000/uL (4.5-11.0)
[2024-07-27 11:15] LABS: CHLORIDE 107 mEq/L (98-107); POTASSIUM 3.6 mEq/L (3.5-5.1); SODIUM 142 mEq/L (136-145)
[2024-07-27 11:16] LABS: CARBON DIOXIDE 29 mEq/L (21-32)
[2024-07-27 11:17] LABS: CALCIUM 9.3 mg/dL (8.7-10.4)
[2024-07-27 11:21] LABS: CREATININE 1.3 mg/dL (0.6-1.3); GLUCOSE 219 mg/dL (70-105); UREA NITROGEN BLOOD 12 mg/dL (9-23)
[2024-07-27] MEDS: METHYLPREDNISOLONE SOD SUCC 125MG/2ML (ACT-O-VIAL) IV STA (11:21)
[2024-07-27] MEDS: FUROSEMIDE 40MG/4ML VIAL IVP ONE (11:21)
[2024-07-27] MEDS: LABETALOL 5MG/ML 4ML INJ IV ONE (11:21)
[2024-07-27 11:22] LABS: TROPONIN I HIGH SENSITIVITY 24 ng/L (3.0-53)
[2024-07-27 11:23] LABS: LACTIC ACID 3.4 mmol/L (0.4-2.0)
[2024-07-27 11:25] LABS: BG BASE EXCESS -2.4 mmol/L (-2.0-3.0); BG CARBOXYHEMOGLOBIN 1.4 % (0.5-1.5); BG DEOXYHEMOGLOBIN 1.5 % (0.0-5.0); BG FRACTION INSPIRED OXYGEN 60; BG HCO3 ACT 24.2 mmol/L (21.0-28.0); BG METHEMOGLOBIN 0.1 % (0.5-1.5); BG OXYGEN SATURATION 98.5 % (94.0-98.0); BG PCO2 48.7 mmHg (35.0-48.0); BG PH 7.315 (7.350-7.450); BG PO2 136.5 mmHg (83.0-108.0); BG SAMPLE SITE RIGHT BRACHIAL; BG TOTAL HEMOGLOBIN 15.6 g/dL (13.5-17.5); BG VENT MODE MASK - BIPAP
[2024-07-27 11:40] VITALS: RESP 23
[2024-07-27] MEDS: ALBUTEROL (0.083%) 2.5MG/3ML NEB HHN SCH (11:40)
[2024-07-27] MEDS: IPRATROPIUM BROMIDE (0.02%) 0.5MG/2.5ML NEB HHN STA (11:40)
[2024-07-27 12:16] VITALS: RESP 33
[2024-07-27 12:43] VITALS: RESP 21
[2024-07-27 13:00] VITALS: BP 123/70; PULSE 80; RESP 20; TEMP 37; O2SAT 98
== END 2024-07-27 15:01 | disposition left against medical advice (07) ==
LOC: ER 10:36 → EDBEDREQTM 12:45 → EDBEDREQ 12:45 → CANBEDREQ 14:56 → ER 15:01
DX: J96.01 Acute respiratory failure with hypoxia (principal); J96.02 Acute respiratory failure with hypercapnia; I11.0 Hypertensive heart disease with heart failure; I16.1 Hypertensive emergency; F17.210 Nicotine dependence, cigarettes, uncomplicated; E78.00 Pure hypercholesterolemia, unspecified; I25.2 Old myocardial infarction; I50.22 Chronic systolic (congestive) heart failure; F10.90 Alcohol use, unspecified, uncomplicated; F12.90 Cannabis use, unspecified, uncomplicated; I69.354 Hemiplegia and hemiparesis following cerebral infarction affecting left non-dominant side; J44.1 Chronic obstructive pulmonary disease with (acute) exacerbation; Z79.02 Long term (current) use of antithrombotics/antiplatelets; Z79.51 Long term (current) use of inhaled steroids; Z79.52 Long term (current) use of systemic steroids; Z79.82 Long term (current) use of aspirin; Z79.899 Other long term (current) drug therapy; Y90.9 Presence of alcohol in blood, level not specified
CPT/HCPCS: 80048; 83880; 83605; 85025; 84484; 87804 ×2; 36415; 71045; 94640; 82805; 82375; 94660; 93005; 94070; 96374; 96375; 99291; 36600; J1940; J3490; J2919; Z7610 ×4

== ENCOUNTER 2024-08-01 06:50 | Emergency (ER) | payer OTHER ==
[~2024-08-01] VITALS: Ht 182.9 cm; Wt 78.0 kg
[2024-08-01 06:54] VITALS: O2SAT 93
[2024-08-01] MEDS: ALBUTEROL (0.083%) 2.5MG/3ML NEB HHN STA (07:05)
[2024-08-01] MEDS: IPRATROPIUM BROMIDE (0.02%) 0.5MG/2.5ML NEB HHN STA (07:05)
[2024-08-01 07:10] VITALS: RESP 24
[2024-08-01] MEDS: METHYLPREDNISOLONE SOD SUCC 125MG/2ML (ACT-O-VIAL) IV STA (07:51)
[2024-08-01] MEDS: FUROSEMIDE 100MG/10ML VIAL IVP ONE (07:52)
[2024-08-01 08:46] LABS: HEMATOCRIT. 45.8 % (42.0-52.0); HEMOGLOBIN. 14.9 g/dL (14.0-18.0); MEAN CORPUSCULAR HEMOGLOBIN 32.4 pg (28.0-32.0); MEAN CORPUSCULAR HGB CONC 32.6 g/dL (31.0-37.0); MEAN CORPUSCULAR VOLUME 99.6 fL (80.0-94.0); MEAN PLATELET VOLUME 10.3 fl (7.4-10.4); PLATELET 199 x1000/uL (130-400); RED CELL DISTRIBUTION WIDTH 13.5 % (11.6-14.6)
[2024-08-01 08:50] VITALS: RESP 24
[2024-08-01 08:55] LABS: CHLORIDE 107 mEq/L (98-107); POTASSIUM 3.7 mEq/L (3.5-5.1); SODIUM 144 mEq/L (136-145)
[2024-08-01 08:56] LABS: CALCIUM 9.5 mg/dL (8.7-10.4); CARBON DIOXIDE 24 mEq/L (21-32)
[2024-08-01 08:57] LABS: DIFFERENTIAL COMMENT 1
[2024-08-01 08:59] LABS: CLARITY URINE CLEAR (CLEAR); COLOR URINE YELLOW (YELLOW); GLUCOSE URINE NEGATIVE (NEGATIVE); KETONES URINE NEGATIVE (NEGATIVE); LEUKOCYTE ESTERASE URINE NEGATIVE (NEGATIVE); NITRITE URINE NEGATIVE (NEGATIVE); OCCULT BLOOD URINE NEGATIVE (NEGATIVE); PH URINE 6.5 (4.5-8.0); PROTEIN URINE 1+ (NEGATIVE); SPECIFIC GRAVITY URINE 1.007 (1.005-1.030); UROBILINOGEN URINE 0.2 E.U./dL (0.2-1.0)
[2024-08-01 09:01] LABS: CREATININE 1.4 mg/dL (0.6-1.3); GLUCOSE 193 mg/dL (70-105); UREA NITROGEN BLOOD 15 mg/dL (9-23)
[2024-08-01 09:02] LABS: TROPONIN I HIGH SENSITIVITY 35 ng/L (3.0-53)
[2024-08-01 09:12] LABS: BACTERIA URINE NONE SEEN; RBC URINE 0-2 /hpf (0-2); SQUAMOUS EPITHELIAL CELL URINE RARE /lpf (RARE/1+); WBC URINE 0-2 /hpf (0-2); YEAST URINE NONE SEEN
[2024-08-01 10:44] LABS: PLATELET ESTIMATE NORMAL
[2024-08-01 13:00] VITALS: BP 131/95; PULSE 87; RESP 14; TEMP 36.8; O2SAT 97
== END 2024-08-01 14:55 | disposition left against medical advice (07) ==
LOC: ER 06:50 → EDBEDREQTM 08:35 → EDBEDREQ 08:35 → EDBEDREQSVC 12:52 → ER 14:55
DX: I11.0 Hypertensive heart disease with heart failure (principal); I50.9 Heart failure, unspecified; E78.00 Pure hypercholesterolemia, unspecified; I25.10 Atherosclerotic heart disease of native coronary artery without angina pectoris; F10.90 Alcohol use, unspecified, uncomplicated; F12.90 Cannabis use, unspecified, uncomplicated; J44.1 Chronic obstructive pulmonary disease with (acute) exacerbation; Z79.02 Long term (current) use of antithrombotics/antiplatelets; Z79.51 Long term (current) use of inhaled steroids; Z79.52 Long term (current) use of systemic steroids; Z79.82 Long term (current) use of aspirin; Z79.899 Other long term (current) drug therapy; Y90.9 Presence of alcohol in blood, level not specified
CPT/HCPCS: 80048; 81003; 85025; 84484; 36415; 93880; 71045; 76604; 94640; 94660; 93005; 96374; 96375; 99291; J1940; J2919; Z7610 ×4

== ENCOUNTER 2024-10-08 04:42 | Inpatient (IN) | payer OTHER ==
[2024-10-08] VITALS (7 sets, daily range): BP systolic 117–128; BP diastolic 73–80; PULSE 63–79; RESP 16–40; TEMP 36.3–36.6; O2SAT 96–100
[~2024-10-08] VITALS: Ht 226.1 cm; Wt 69.9 kg
[~2024-10-08 04:42] MED LIST changes: -TAMS-11 MT; +TAMS-54 MT
[2024-10-08 05:19] LABS: BASOPHILS % 0.7 % (0.0-2.0); EOSINOPHILS % 5.3 % (0.0-5.0); HEMATOCRIT. 44.9 % (42.0-52.0); HEMOGLOBIN. 15.2 g/dL (14.0-18.0); LYMPHOCYTES % 58.2 % (20.0-50.0); MEAN CORPUSCULAR HEMOGLOBIN 32.3 pg (28.0-32.0); MEAN CORPUSCULAR HGB CONC 33.8 g/dL (31.0-37.0); MEAN CORPUSCULAR VOLUME 95.8 fL (80.0-94.0); MEAN PLATELET VOLUME 9.1 fl (7.4-10.4); MONOCYTES % 6.6 % (2.0-8.0); NEUTROPHILS % 29.2 % (40.0-76.0); PLATELET 192 x1000/uL (130-400); RED BLOOD CELL COUNT 4.69 mill/uL (4.7-6.1); RED CELL DISTRIBUTION WIDTH 13.6 % (11.6-14.6); WHITE BLOOD COUNT 7.1 x1000/uL (4.5-11.0)
[2024-10-08] MEDS: ONDANSETRON HCL 4MG/2ML INJ IV STA (05:27)
[2024-10-08] MEDS: FUROSEMIDE 40MG/4ML VIAL IV ONE (05:27)
[2024-10-08 05:34] LABS: PARTIAL THROMBOPLASTIN TIME 24.9 sec (23.4-31.0)
[2024-10-08] MEDS: NITROGLYCERIN 50MG PREMIX 250 ML IV ONE (05:35)
[2024-10-08 05:37] LABS: CHLORIDE 106 mEq/L (98-107); POTASSIUM 3.4 mEq/L (3.5-5.1); SODIUM 141 mEq/L (136-145)
[2024-10-08 05:38] LABS: CALCIUM 9.5 mg/dL (8.7-10.4); CARBON DIOXIDE 26 mEq/L (21-32)
[2024-10-08 05:43] LABS: CREATININE 1.4 mg/dL (0.6-1.3); GLUCOSE 265 mg/dL (70-105); TROPONIN I HIGH SENSITIVITY 37 ng/L (3.0-53); UREA NITROGEN BLOOD 13 mg/dL (9-23)
[2024-10-08 05:45] LABS: BG BASE EXCESS -0.7 mmol/L (-2.0-3.0); BG CARBOXYHEMOGLOBIN 1.9 % (0.5-1.5); BG DEOXYHEMOGLOBIN 0.1 % (0.0-5.0); BG FRACTION INSPIRED OXYGEN 100; BG METHEMOGLOBIN 0.1 % (0.5-1.5); BG OXYGEN SATURATION 99.9 % (94.0-98.0); BG OXYHEMOGLOBIN 97.9 % (94.0-98.0); BG PCO2 56.8 mmHg (35.0-48.0); BG PH 7.295 (7.350-7.450); BG PO2 400.7 mmHg (83.0-108.0); BG SAMPLE SITE LEFT RADIAL; BG TOTAL HEMOGLOBIN 15.3 g/dL (13.5-17.5); BG VENT MODE MASK - BIPAP
[2024-10-08 07:45] LABS: TROPONIN I HIGH SENSITIVITY 38 ng/L (3.0-53)
[2024-10-08] MEDS: FUROSEMIDE 40MG/4ML VIAL IVP SCH (08:30)
[2024-10-08] MEDS ORDERED: ENOXAPARIN 40MG/0.4ML SYR SUBCUT SCH (08:30)
[2024-10-08] MEDS ORDERED: MORPHINE SULFATE 2 MG/ML INJ (NOT FOR IM USE) IV PRN (08:30)
[2024-10-08] MEDS ORDERED: CLONIDINE 0.1MG TABLET PO PRN (08:30)
[2024-10-08] MEDS ORDERED: ACETAMINOPHEN 325MG TABLET PO PRN (08:30)
[2024-10-08] MEDS ORDERED: ZOLPIDEM TARTRATE 5MG TABLET PO PRN (08:30)
[2024-10-08] MEDS ORDERED: ONDANSETRON HCL 4MG/2ML INJ IV PRN (08:30)
[2024-10-08] MEDS ORDERED: FUROSEMIDE 40MG/4ML VIAL IVP SCH (08:30)
[2024-10-08] MEDS ORDERED: HYDROCODONE/ACETAMINOPHEN 5/325MG TABLET PO PRN (08:30)
[2024-10-08] MEDS: IPRATROPIUM/ALBUTEROL 0.5-3(2.5)MG/3ML NEB HHN SCH ×2 (08:40→20:35)
[2024-10-08] MEDS ORDERED: NALOXONE HCL 0.4MG/ML VIAL IV PRN (08:45)
[2024-10-08] MEDS: AMLODIPINE 10MG TABLET PO SCH (09:00)
[2024-10-08] MEDS: CARVEDILOL 3.125 MG TABLET PO SCH (09:00)
[2024-10-08] MEDS: PANTOPRAZOLE SODIUM 40 MG/VIAL IV SCH (09:28)
[2024-10-08] MEDS: ASPIRIN 81MG EC TABLET PO SCH (09:29)
[2024-10-08] MEDS: CLOPIDOGREL 75MG TABLET PO SCH (09:29)
[2024-10-08] MEDS: ENOXAPARIN 30MG/0.3ML SYR SUBCUT SCH (09:29)
[2024-10-08 09:36] LABS: TROPONIN I HIGH SENSITIVITY 41 ng/L (3.0-53)
[2024-10-08 09:46] LABS: BG BASE EXCESS 0.4 mmol/L (-2.0-3.0); BG CARBOXYHEMOGLOBIN 1.4 % (0.5-1.5); BG DEOXYHEMOGLOBIN 6.9 % (0.0-5.0); BG FRACTION INSPIRED OXYGEN 30; BG HCO3 ACT 27.4 mmol/L (21.0-28.0); BG OXYHEMOGLOBIN 91.7 % (94.0-98.0); BG PCO2 53.1 mmHg (35.0-48.0); BG PO2 71.6 mmHg (83.0-108.0); BG SAMPLE SITE RIGHT BRACHIAL; BG TOTAL HEMOGLOBIN 15.4 g/dL (13.5-17.5); BG VENT MODE NASAL CANNULA
[2024-10-08] MEDS: TAMSULOSIN HCL 0.4MG SR CAPSULE PO SCH (09:51)
[2024-10-08] MEDS ORDERED: IPRATROPIUM/ALBUTEROL 0.5-3(2.5)MG/3ML NEB HHN PRN (12:15)
[2024-10-08 12:55] LABS: CLARITY URINE CLEAR (CLEAR); COLOR URINE YELLOW (YELLOW); GLUCOSE URINE NEGATIVE (NEGATIVE); KETONES URINE NEGATIVE (NEGATIVE); LEUKOCYTE ESTERASE URINE NEGATIVE (NEGATIVE); NITRITE URINE NEGATIVE (NEGATIVE); OCCULT BLOOD URINE NEGATIVE (NEGATIVE); PROTEIN URINE NEGATIVE (NEGATIVE); SPECIFIC GRAVITY URINE 1.009 (1.005-1.030); UROBILINOGEN URINE 0.2 E.U./dL (0.2-1.0)
[2024-10-08 13:10] LABS: *AMPHETAMINES SCREEN URINE NEGATIVE (NEGATIVE); *BARBITURATES SCREEN URINE NEGATIVE (NEGATIVE); *BENZODIAZEPINES SCREEN URINE NEGATIVE (NEGATIVE); *COCAINE SCREEN URINE NEGATIVE (NEGATIVE)
[2024-10-08 13:11] LABS: CANNABINOID URINE SCREEN PRESUMPTIVE POSITIVE (NEGATIVE); ECSTASY MDMA SCREEN URINE NEGATIVE (NEGATIVE); METHADONE URINE SCREEN NEGATIVE (NEGATIVE); OPIATES URINE SCREEN PRESUMPTIVE POSITIVE (NEGATIVE); PHENCYCLIDINE URINE SCREEN NEGATIVE (NEGATIVE)
[2024-10-08] MEDS ORDERED: FOLI0.4T6 MT (18:52)
[2024-10-08] MEDS ORDERED: MORPHINE SULFATE 2 MG/ML INJ (NOT FOR IM USE) IV NR (21:30)
[2024-10-09] VITALS (8 sets, daily range): BP systolic 115–132; BP diastolic 79–99; PULSE 76–96; RESP 16–20; TEMP 35.6–36.8; O2SAT 96–98
[2024-10-09 06:52] LABS: CALCIUM 9.4 mg/dL (8.7-10.4); CARBON DIOXIDE 30 mEq/L (21-32); CHLORIDE 106 mEq/L (98-107); POTASSIUM 3.6 mEq/L (3.5-5.1); SODIUM 140 mEq/L (136-145)
[2024-10-09 06:58] LABS: GLUCOSE 97 mg/dL (70-105); UREA NITROGEN BLOOD 14 mg/dL (9-23)
[2024-10-09 07:22] LABS: BASOPHILS % 0.9 % (0.0-2.0); EOSINOPHILS % 5.3 % (0.0-5.0); HEMATOCRIT. 39.2 % (42.0-52.0); HEMOGLOBIN. 13.1 g/dL (14.0-18.0); LYMPHOCYTES % 49.7 % (20.0-50.0); MEAN CORPUSCULAR HEMOGLOBIN 31.9 pg (28.0-32.0); MEAN CORPUSCULAR HGB CONC 33.5 g/dL (31.0-37.0); MEAN CORPUSCULAR VOLUME 95.3 fL (80.0-94.0); MEAN PLATELET VOLUME 9.6 fl (7.4-10.4); MONOCYTES % 9.6 % (2.0-8.0); NEUTROPHILS % 34.5 % (40.0-76.0); PLATELET 158 x1000/uL (130-400); RED BLOOD CELL COUNT 4.12 mill/uL (4.7-6.1); RED CELL DISTRIBUTION WIDTH 13.5 % (11.6-14.6); WHITE BLOOD COUNT 5.4 x1000/uL (4.5-11.0)
== END 2024-10-09 20:09 | disposition home or self-care (01) | DRG 194 ==
LOC: ER 04:42 → 7WST 04:58 → EDBEDREQSVC 08:32
PROVIDERS: ADMIT Internal Medicine; ATTEND Internal Medicine
PROC: 5A09357 Assistance with Respiratory Ventilation, Less than 24 Consecutive Hours, Continuous Positive Airway Pressure (ICD-10-PCS; principal; 2024-10-08)
DX: I11.0 Hypertensive heart disease with heart failure (principal); J96.01 Acute respiratory failure with hypoxia; I16.0 Hypertensive urgency; J44.1 Chronic obstructive pulmonary disease with (acute) exacerbation; I50.9 Heart failure, unspecified; E78.00 Pure hypercholesterolemia, unspecified; G47.33 Obstructive sleep apnea (adult) (pediatric); I25.10 Atherosclerotic heart disease of native coronary artery without angina pectoris; F17.200 Nicotine dependence, unspecified, uncomplicated; N40.0 Benign prostatic hyperplasia without lower urinary tract symptoms; Z91.148 Patient's other noncompliance with medication regimen for other reason; Z86.73 Personal history of transient ischemic attack (TIA), and cerebral infarction without residual deficits
CPT/HCPCS: 36415; 36600; 71045; 80048; 80305; 81003; 82375; 82805; 83880; 84484; 85025; 93005; 93970; 94070; 94640; 94660; 94664; 98960; 99285; A4606; J1650; J1940; J2405; J2470; J3490

== ENCOUNTER 2025-05-27 06:12 | Inpatient (IN) | payer OTHER ==
[2025-05-27] VITALS (83 sets, daily range): BP systolic 52–152; BP diastolic 43–108; PULSE 60–130; RESP 23–33; TEMP 35.8064–36.2; O2SAT 88–100
[~2025-05-27] VITALS: Ht 182.9 cm; Wt 70.8 kg
[~2025-05-27 06:12] MED LIST changes: +COR12 PO; -COR3 PO; +FOLI0.4T6 MT; +FURO-151 MT; +LISI-186 PO; +POTA10TA42 MT; +SPIR25TA PO
[2025-05-27] MEDS: ALBUTEROL (0.083%) 2.5MG/3ML NEB HHN ONE (06:40)
[2025-05-27] MEDS: IPRATROPIUM BROMIDE (0.02%) 0.5MG/2.5ML NEB HHN ONE (06:41)
[2025-05-27] MEDS: METHYLPREDNISOLONE SOD SUCC 125MG/2ML (ACT-O-VIAL) IV ONE (06:49)
[2025-05-27] MEDS: NITROGLYCERIN OINT 1GM/INCH UDPKT TD ONE (06:56)
[2025-05-27] MEDS ORDERED: LORAZEPAM 2MG/ML UD SYRINGE IV NR (07:00)
[2025-05-27] MEDS: FUROSEMIDE 40MG/4ML VIAL IV ONE (07:03)
[2025-05-27] MEDS: LORAZEPAM 2MG/ML UD SYRINGE IV NR (07:20)
[2025-05-27 07:23] LABS: BG DEOXYHEMOGLOBIN 67.1 % (0.0-5.0)
[2025-05-27 07:42] LABS: BASOPHILS % 1.0 % (0.0-2.0); EOSINOPHILS % 1.9 % (0.0-5.0); HEMATOCRIT. 44.2 % (42.0-52.0); HEMOGLOBIN. 14.5 g/dL (14.0-18.0); LYMPHOCYTES % 45.1 % (20.0-50.0); MEAN PLATELET VOLUME 8.7 fl (7.4-10.4); MONOCYTES % 5.3 % (2.0-8.0); NEUTROPHILS % 46.7 % (40.0-76.0); PLATELET 283 x1000/uL (130-400); RED BLOOD CELL COUNT 4.46 mill/uL (4.7-6.1); RED CELL DISTRIBUTION WIDTH 13.6 % (11.6-14.6)
[2025-05-27 07:55] LABS: CREATININE 1.3 mg/dL (0.6-1.3)
[2025-05-27 07:56] LABS: UREA NITROGEN BLOOD 12 mg/dL (9-23)
[2025-05-27 07:57] LABS: ASPARTATE AMINOTRANSFERASE 23 IU/L (<34); BILIRUBIN DIRECT 0.1 mg/dL (<=3.0)
[2025-05-27 07:58] LABS: BILIRUBIN TOTAL 0.5 mg/dL (0.1-1.0); PROTEIN TOTAL 7.4 g/dL (6.0-8.3)
[2025-05-27 08:02] LABS: INR 1.0
[2025-05-27 08:09] LABS: TROPONIN I HIGH SENSITIVITY 56 ng/L (3.0-53)
[2025-05-27] MEDS ORDERED: ACETAMINOPHEN 650MG SUPP PR PRN (08:30)
[2025-05-27] MEDS ORDERED: ACETAMINOPHEN 650MG/20.3ML UDC NG PRN (08:30)
[2025-05-27] MEDS: LEVOFLOXACIN 750MG PREMIX 150 ML IV ONE (08:55)
[2025-05-27] MEDS: PROPOFOL 10MG/ML 100ML 100 ML IV PRN ×2 (08:56→21:05)
[2025-05-27] MEDS: NITROGLYCERIN 50MG PREMIX 250 ML IV ONE (08:56)
[2025-05-27] MEDS ORDERED: FENTANYL 2500MCG/250ML PMX 250 ML IV PRN (09:00)
[2025-05-27 09:19] LABS: BG BASE EXCESS -4.4 mmol/L (-2.0-3.0); BG CARBOXYHEMOGLOBIN 0.9 % (0.5-1.5); BG DEOXYHEMOGLOBIN 5.2 % (0.0-5.0); BG FRACTION INSPIRED OXYGEN 100; BG HCO3 ACT 25.8 mmol/L (21.0-28.0); BG METHEMOGLOBIN 0.3 % (0.5-1.5); BG OXYGEN SATURATION 94.7 % (94.0-98.0); BG OXYHEMOGLOBIN 93.6 % (94.0-98.0); BG PCO2 71.8 mmHg (35.0-48.0); BG PEEP (cmH2O) 10.0 cmH2O; BG PH 7.174 (7.350-7.450); BG PO2 88.3 mmHg (83.0-108.0); BG SAMPLE SITE RIGHT BRACHIAL; BG TIDAL VOLUME(mL) 500.0 mL; BG TOTAL HEMOGLOBIN 15.0 g/dL (13.5-17.5); BG TOTAL RESPIRATORY RATE 37 b/min; BG VENT MODE VENT-PRVC; BG VENT RATE 30.0 set
[2025-05-27] MEDS: FENTANYL 2500MCG/250ML PMX 250 ML IV PRN (09:19)
[2025-05-27 09:39] LABS: TROPONIN I HIGH SENSITIVITY 74 ng/L (3.0-53)
[2025-05-27] MEDS ORDERED: DEXTROSE 50% WATER 50ML SYRINGE IV PRN (10:00)
[2025-05-27] MEDS ORDERED: ACETAMINOPHEN 325MG TABLET PO PRN ×2 (10:00)
[2025-05-27] MEDS ORDERED: GUAIFENESIN 200MG/10ML SUGAR FREE UDC PO PRN (10:00)
[2025-05-27] MEDS ORDERED: ONDANSETRON HCL 4MG/2ML INJ IV PRN (10:00)
[2025-05-27] MEDS ORDERED: IPRATROPIUM/ALBUTEROL 0.5-3(2.5)MG/3ML NEB HHN PRN ×2 (10:00→10:15)
[2025-05-27] MEDS: BLOOD SUGAR DIAGNOSTIC STRIP TEST SCH (10:00)
[2025-05-27] MEDS ORDERED: DOCUSATE SODIUM 100MG CAPSULE PO PRN (10:00)
[2025-05-27 10:28] LABS: CREATININE 1.4 mg/dL (0.6-1.3); UREA NITROGEN BLOOD 11 mg/dL (9-23)
[2025-05-27 10:30] LABS: ASPARTATE AMINOTRANSFERASE 40 IU/L (<34); BILIRUBIN TOTAL 0.6 mg/dL (0.1-1.0); PROTEIN TOTAL 7.3 g/dL (6.0-8.3)
[2025-05-27] MEDS ORDERED: PHENYLEPHRINE 50 MG in DEXT 5% WATER 245 ML IV PRN (11:00)
[2025-05-27] MEDS ORDERED: VANCOMYCIN 1G PREMIX 200 ML IV NR (11:00)
[2025-05-27] MEDS: NOREPINEPHRINE 8MG/250ML PMX 242 ML IV PRN (11:02)
[2025-05-27] MEDS: DEXT 5%/0.45% NACL 1000ML 1,000 ML IV SCH (11:48)
[2025-05-27] MEDS: ENOXAPARIN 40MG/0.4ML SYR SUBCUT SCH (11:49)
[2025-05-27 12:21] LABS: BG BASE EXCESS 2.1 mmol/L (-2.0-3.0); BG CARBOXYHEMOGLOBIN 0.7 % (0.5-1.5); BG DEOXYHEMOGLOBIN 0.1 % (0.0-5.0); BG FRACTION INSPIRED OXYGEN 100; BG HCO3 ACT 28.6 mmol/L (21.0-28.0); BG METHEMOGLOBIN 0.3 % (0.5-1.5); BG OXYGEN SATURATION 99.9 % (94.0-98.0); BG OXYHEMOGLOBIN 98.9 % (94.0-98.0); BG PCO2 51.8 mmHg (35.0-48.0); BG PEEP (cmH2O) 10.0 cmH2O; BG PH 7.360 (7.350-7.450); BG PO2 297.4 mmHg (83.0-108.0); BG SAMPLE SITE RIGHT BRACHIAL; BG TIDAL VOLUME(mL) 500.0 mL; BG TOTAL HEMOGLOBIN 14.4 g/dL (13.5-17.5); BG TOTAL RESPIRATORY RATE 30 b/min; BG VENT MODE VENT-PRVC; BG VENT RATE 30.0 set
[2025-05-27] MEDS: IPRATROPIUM/ALBUTEROL 0.5-3(2.5)MG/3ML NEB HHN SCH (12:21)
[2025-05-27 12:57] LABS: INFLUENZA TYPE A Presumptive Negative (Pres. Neg.)
[2025-05-27 12:58] LABS: INFLUENZA TYPE B Presumptive Negative (Pres. Neg.)
[2025-05-27] MEDS: INSULIN LISPRO 100 UNITS/ML SUBCUT SCH (13:20)
[2025-05-27] MEDS ORDERED: PIPERACILLIN/TAZO 3.375G/50ML 50 ML IV SCH (14:00)
[2025-05-27] MEDS: PIPERACILLIN/TAZO 3.375G/50ML 50 ML IV SCH (14:06)
[2025-05-27] MEDS: VANCOMYCIN 2GM PMX (XELLIA) 400 ML IV NR (14:06)
[2025-05-27] MEDS: METHYLPREDNISOLONE SOD SUCC 125MG/2ML (ACT-O-VIAL) IV SCH (14:07)
[2025-05-27 17:39] LABS: TROPONIN I HIGH SENSITIVITY 209 ng/L (3.0-53)
[2025-05-27] MEDS: ENOXAPARIN 80MG/0.8ML SYR SUBCUT SCH (21:05)
[2025-05-28] VITALS (115 sets, daily range): BP systolic 89–148; BP diastolic 53–103; PULSE 50–88; RESP 12–24; TEMP 36.7; O2SAT 74–100
[2025-05-28 00:32] LABS: CLARITY URINE CLOUDY (CLEAR); COLOR URINE YELLOW (YELLOW); GLUCOSE URINE NEGATIVE (NEGATIVE); KETONES URINE NEGATIVE (NEGATIVE); LEUKOCYTE ESTERASE URINE NEGATIVE (NEGATIVE); NITRITE URINE NEGATIVE (NEGATIVE); OCCULT BLOOD URINE NEGATIVE (NEGATIVE); PH URINE 5.0 (4.5-8.0); PROTEIN URINE NEGATIVE (NEGATIVE); SPECIFIC GRAVITY URINE 1.024 (1.005-1.030); UROBILINOGEN URINE 0.2 E.U./dL (0.2-1.0)
[2025-05-28 00:48] LABS: TROPONIN I HIGH SENSITIVITY 146 ng/L (3.0-53)
[2025-05-28 00:58] LABS: *AMPHETAMINES SCREEN URINE NEGATIVE (NEGATIVE)
[2025-05-28 00:59] LABS: *BARBITURATES SCREEN URINE NEGATIVE (NEGATIVE); *BENZODIAZEPINES SCREEN URINE NEGATIVE (NEGATIVE); *COCAINE SCREEN URINE NEGATIVE (NEGATIVE); CANNABINOID URINE SCREEN PRESUMPTIVE POSITIVE (NEGATIVE); ECSTASY MDMA SCREEN URINE NEGATIVE (NEGATIVE); METHADONE URINE SCREEN NEGATIVE (NEGATIVE); OPIATES URINE SCREEN PRESUMPTIVE POSITIVE (NEGATIVE); PHENCYCLIDINE URINE SCREEN NEGATIVE (NEGATIVE)
[2025-05-28 03:10] LABS: RBC URINE 0-2 /hpf (0-2); SQUAMOUS EPITHELIAL CELL URINE FEW /lpf (RARE/1+); WBC URINE 0-2 /hpf (0-2)
[2025-05-28 03:11] LABS: BACTERIA URINE NONE SEEN
[2025-05-28] MEDS: VANCOMYCIN 750MG PREMIX 150 ML IV SCH (04:02)
[2025-05-28] MEDS: PANTOPRAZOLE SODIUM 40 MG/VIAL IV SCH (09:55)
[2025-05-28 10:10] LABS: BG BASE EXCESS 2.1 mmol/L (-2.0-3.0); BG CARBOXYHEMOGLOBIN 1.1 % (0.5-1.5); BG DEOXYHEMOGLOBIN 1.5 % (0.0-5.0); BG FRACTION INSPIRED OXYGEN 40; BG HCO3 ACT 26.4 mmol/L (21.0-28.0); BG METHEMOGLOBIN 0.2 % (0.5-1.5); BG OXYGEN SATURATION 98.5 % (94.0-98.0); BG OXYHEMOGLOBIN 97.2 % (94.0-98.0); BG PCO2 40.2 mmHg (35.0-48.0); BG PEEP (cmH2O) 8.0 cmH2O; BG PH 7.435 (7.350-7.450); BG PO2 109.1 mmHg (83.0-108.0); BG SAMPLE SITE RIGHT RADIAL; BG TIDAL VOLUME(mL) 500.0 mL; BG TOTAL HEMOGLOBIN 13.1 g/dL (13.5-17.5); BG VENT MODE VENT - PRVC; BG VENT RATE 24.0 set
[2025-05-28 11:52] LABS: HEMATOCRIT. 35.6 % (42.0-52.0); HEMOGLOBIN. 11.8 g/dL (14.0-18.0); MEAN PLATELET VOLUME 9.1 fl (7.4-10.4); PLATELET 229 x1000/uL (130-400); RED BLOOD CELL COUNT 3.73 mill/uL (4.7-6.1); RED CELL DISTRIBUTION WIDTH 13.6 % (11.6-14.6)
[2025-05-28 11:59] LABS: CREATININE 1.0 mg/dL (0.6-1.3); UREA NITROGEN BLOOD 15 mg/dL (9-23)
[2025-05-28 12:10] LABS: TROPONIN I HIGH SENSITIVITY 111 ng/L (3.0-53)
[2025-05-28] MEDS: PROPOFOL 10MG/ML 100ML 100 ML IV PRN (12:47)
[2025-05-28] MEDS: DOXYCYCLINE 100MG/100ML 100 ML IV SCH (13:39)
[2025-05-28] MEDS: TAMSULOSIN HCL 0.4MG SR CAPSULE PO SCH (15:15)
[2025-05-28] MEDS: ASPIRIN 81MG EC TABLET PO SCH (16:30)
[2025-05-28] MEDS: VANCOMYCIN 1GM PMX (XELLIA) 200 ML IV SCH (17:01)
[2025-05-28 17:51] LABS: LYMPHOCYTES % MANUAL 6.0 % (20.0-50.0); MONOCYTES % MANUAL 2.0 % (2.0-8.0); NEUTROPHILS % MANUAL 92.0 % (45.0-75.0); PLATELET ESTIMATE NORMAL
[2025-05-28] MEDS: FOLIC ACID/VITAMIN B COMP W-C TABLET PO SCH (19:40)
[2025-05-28] MEDS: ATORVASTATIN CALCIUM 40MG TABLET PO SCH (22:07)
[2025-05-28] MEDS: ENOXAPARIN 80MG/0.8ML SYR SUBCUT SCH (22:07)
[2025-05-28] MEDS: LORAZEPAM 0.5MG TABLET PO PRN (22:13)
[2025-05-29] VITALS (89 sets, daily range): BP systolic 65–166; BP diastolic 39–143; PULSE 50–115; RESP 10–28; TEMP 36.6–36.8; O2SAT 92–100
[2025-05-29] MEDS: MIDAZOLAM HCL 2 MG/2 ML VIAL IV NR (03:39)
[2025-05-29 06:29] LABS: HEMATOCRIT. 34.2 % (42.0-52.0); HEMOGLOBIN. 11.3 g/dL (14.0-18.0); MEAN PLATELET VOLUME 8.7 fl (7.4-10.4); PLATELET 210 x1000/uL (130-400); RED BLOOD CELL COUNT 3.53 mill/uL (4.7-6.1); RED CELL DISTRIBUTION WIDTH 13.6 % (11.6-14.6)
[2025-05-29 06:55] LABS: CREATININE 0.9 mg/dL (0.6-1.3)
[2025-05-29 06:56] LABS: TRIGLYCERIDE 82 mg/dL (0-150); UREA NITROGEN BLOOD 13 mg/dL (9-23)
[2025-05-29 10:07] LABS: BG BASE EXCESS -0.5 mmol/L (-2.0-3.0); BG CARBOXYHEMOGLOBIN 1.0 % (0.5-1.5); BG DEOXYHEMOGLOBIN 1.1 % (0.0-5.0); BG FRACTION INSPIRED OXYGEN 40; BG HCO3 ACT 25.1 mmol/L (21.0-28.0); BG METHEMOGLOBIN 0.1 % (0.5-1.5); BG OXYGEN SATURATION 98.9 % (94.0-98.0); BG OXYHEMOGLOBIN 97.8 % (94.0-98.0); BG PCO2 44.9 mmHg (35.0-48.0); BG PEEP (cmH2O) 5.0 cmH2O; BG PH 7.365 (7.350-7.450); BG PO2 132.5 mmHg (83.0-108.0); BG SAMPLE SITE RIGHT BRACHIAL; BG TOTAL HEMOGLOBIN 13.9 g/dL (13.5-17.5); BG VENT MODE VENT - CPAP
[2025-05-29 11:45] LABS: BAND% 5.0 % (1.0-6.0); LYMPHOCYTES % MANUAL 5.0 % (20.0-50.0); MONOCYTES % MANUAL 6.0 % (2.0-8.0); NEUTROPHILS % MANUAL 84.0 % (45.0-75.0); PLATELET ESTIMATE NORMAL
[2025-05-29] MEDS: METHYLPREDNISOLONE SOD SUCC 40MG/ML (ACT-O-VIAL) IV SCH (13:51)
[2025-05-30] VITALS (46 sets, daily range): BP systolic 120–159; BP diastolic 78–110; PULSE 63–106; RESP 6–31; TEMP 36.6–37.7; O2SAT 88–100
[2025-05-30 06:29] LABS: BASOPHILS % 0.8 % (0.0-2.0); EOSINOPHILS % 0.0 % (0.0-5.0); HEMATOCRIT. 34.2 % (42.0-52.0); HEMOGLOBIN. 11.4 g/dL (14.0-18.0); LYMPHOCYTES % 10.2 % (20.0-50.0); MEAN PLATELET VOLUME 8.8 fl (7.4-10.4); MONOCYTES % 5.0 % (2.0-8.0); NEUTROPHILS % 84.0 % (40.0-76.0); PLATELET 210 x1000/uL (130-400); RED BLOOD CELL COUNT 3.55 mill/uL (4.7-6.1); RED CELL DISTRIBUTION WIDTH 13.8 % (11.6-14.6)
[2025-05-30 06:39] LABS: CREATININE 0.9 mg/dL (0.6-1.3)
[2025-05-30 06:40] LABS: UREA NITROGEN BLOOD 11 mg/dL (9-23)
[2025-05-30] MEDS: VANCOMYCIN 1G PREMIX 200 ML IV SCH (09:24)
[2025-05-30] MEDS: CLONIDINE 0.1MG TABLET PO PRN (11:51)
[2025-05-30] MEDS: AMLODIPINE 10MG TABLET PO SCH (14:36)
[2025-05-30] MEDS: TAMSULOSIN HCL 0.4MG SR CAPSULE PO SCH (21:05)
[2025-05-30] MEDS: CARVEDILOL 12.5MG TABLET PO SCH (21:05)
[2025-05-31] VITALS: BP 121/79; PULSE 67; RESP 18; TEMP 36.3; O2SAT 97
[2025-05-31 04:00] VITALS: BP 122/81; PULSE 66; RESP 18; TEMP 36.2; O2SAT 97
[2025-05-31 08:00] VITALS: BP 149/98; PULSE 75; RESP 18; TEMP 36; O2SAT 98
[2025-05-31 12:00] VITALS: BP 148/93; PULSE 72; RESP 18; TEMP 36.2; O2SAT 99
[2025-05-31] MEDS ORDERED: PREDNISONE 20MG TABLET PO SCH (17:50)
[2025-06-01] MEDS ORDERED: FAMOTIDINE 20MG/2ML VIAL IV SCH (09:00)
== END 2025-05-31 15:00 | disposition left against medical advice (07) | DRG 720 ==
LOC: ER 06:29 → CVICU 08:47 → EDBEDREQSVC 08:55 → EDBEDREQ 08:59 → EDBEDREQTM 08:59 → EDBEDREQ 09:00 → ENRESERV 09:39 → 6WST 05-30 18:45
PROVIDERS: ADMIT Internal Medicine; ATTEND Internal Medicine
PROC: 5A1945Z Respiratory Ventilation, 24-96 Consecutive Hours (ICD-10-PCS; principal; 2025-05-27)
PROC: 5A09357 Assistance with Respiratory Ventilation, Less than 24 Consecutive Hours, Continuous Positive Airway Pressure (ICD-10-PCS; 2025-05-27)
PROC: 0BH17EZ Insertion of Endotracheal Airway into Trachea, Via Natural or Artificial Opening (ICD-10-PCS; 2025-05-27)
DX: A41.9 Sepsis, unspecified organism (principal); R57.0 Cardiogenic shock; R65.21 Severe sepsis with septic shock; J96.22 Acute and chronic respiratory failure with hypercapnia; J96.21 Acute and chronic respiratory failure with hypoxia; I50.23 Acute on chronic systolic (congestive) heart failure; I27.20 Pulmonary hypertension, unspecified; J18.9 Pneumonia, unspecified organism; I46.9 Cardiac arrest, cause unspecified; N17.9 Acute kidney failure, unspecified; E11.65 Type 2 diabetes mellitus with hyperglycemia; I11.0 Hypertensive heart disease with heart failure; F11.10 Opioid abuse, uncomplicated; J44.1 Chronic obstructive pulmonary disease with (acute) exacerbation; Z20.822 Contact with and (suspected) exposure to COVID-19; E87.29 Other acidosis; E78.5 Hyperlipidemia, unspecified; Z53.29 Procedure and treatment not carried out because of patient's decision for other reasons; F17.210 Nicotine dependence, cigarettes, uncomplicated; I21.A1 Myocardial infarction type 2; N40.0 Benign prostatic hyperplasia without lower urinary tract symptoms; J84.10 Pulmonary fibrosis, unspecified; I47.10 Supraventricular tachycardia, unspecified; I25.10 Atherosclerotic heart disease of native coronary artery without angina pectoris; F12.10 Cannabis abuse, uncomplicated; G47.33 Obstructive sleep apnea (adult) (pediatric); Z79.899 Other long term (current) drug therapy; Z79.51 Long term (current) use of inhaled steroids
CPT/HCPCS: 31500; 31720; 36415; 36600; 71045; 80048; 80053; 80076; 80202; 80305; 80320; 81003; 82375; 82550; 82803; 82805; 82962; 83036; 83605; 83735; 83880; 84145; 84478; 84484; 85025; 87070; 87426; 87804; 93005; 93970; 94002; 94003; 94070; 94640; 94660; 97162; 97165; 98960; 99285; A4615; J1650; J1815; J1938; J1956; J2060; J2250; J2470; J2543; J2704; J2919; J3373; J3490; G0480